=== PATIENT | male | born 1960 | race Caucasian/White ===

== ENCOUNTER → 2019-01-11 12:29 | Outpatient (CLI) | payer OTHER, SELFPAY ==
[2019-01-11 15:20] LABS: ALB/GLOB Ratio 1.1 RATIO (0.9-2.4); AST(SGOT) 16 U/L (15-37); Alanine Aminotransfer ALT/SGPT 27 U/L (16-61); Alkaline Phosphatase 85 U/L (45-117); Anion Gap 7 (5-15); BUN 16 mg/dL (7-18); BUN/Creat Ratio 18.4 RATIO (10-20); Calcium,Total 9.1 mg/dL (8.5-10.1); Chloride 107 mmol/L (98-107); Cholesterol 226 mg/dL (200); Creatinine, Serum 0.87 mg/dL (0.70-1.30); EST Glomerular Filtration Rate 96 mL/min (>60); Est Glom Filt Rate - Afr Amer 117 mL/min (>60); Globulin 3.7 g/dL (2.2-4.2); Glucose 80 mg/dL (74-106); High Density Lipoprotein 61 mg/dL; Potassium 3.7 mmol/L (3.5-5.1); Protein, Total 7.7 g/dL (6.4-8.2); Sodium Level 138 mmol/L (136-145); Triglycerides 84 mg/dL; Very Low Density Lipoprotein 17 mg/dL (5-40)
== END ==
PROVIDERS: Family Provider Family Medicine; PCP Family Medicine; Referring Provider Family Medicine; Visit Provider Family Medicine
DX: I10 Essential (primary) hypertension (principal)
CPT/HCPCS: 36415; 80053; 80061

== ENCOUNTER → 2019-04-21 17:17 | Outpatient (CLI) | payer OTHER, SELFPAY ==
--- NOTE | 2019-04-21 18:28 | CT_ITS ---
STUDY: CT ORBITS WITH CONTRAST REASON FOR EXAM: Male, 58 years old. RIGHT EYE PROPTOSIS RADIATION DOSAGE (If Supplied By Facility): CTDIvol = ( 27.19 ) mGy, DLP = ( 2470.20 ) mGycm TECHNIQUE: The patient was scanned in a multi detector CT scanner. Transaxial imaging was performed following the intravenous administration of Isovue 370 100ml. Sagittal and coronal images were reconstructed. Individualized dose optimization techniques were used for this CT. COMPARISON: Head CT same day FINDINGS: Normal globes. Normal intraconal spaces. Normal optic nerve sheath complex. Normal bilateral extraocular muscles. Normal lacrimal glands. Normal bilateral medial and inferior orbital malagon. Normal bilateral maxillary bones. Normal bilateral frontozygomatic arches. Normal bilateral zygomatic temporal arches. Normal frontal sinus. Normal ethmoidal sinuses. 14 mm cyst in the right maxillary sinus. Normal sphenoid sinuses. Normal soft tissue structures. There is no demonstrated abnormal enhancement. CT/Orb Sella Post Fossa Ear W/CON IMPRESSION: Normal enhanced CT examination of the bilateral orbits. Electronically Signed: Guillaume Kaur MD at 22:15 EST Tel , Service support ,
--- NOTE | 2019-04-21 18:28 | CT_ITS ---
STUDY: CT BRAIN WITH AND WITHOUT CONTRAST REASON FOR EXAM: Male, 58 years old. Right eye proptosis. RADIATION DOSAGE (If Supplied By Facility): CTDIvol = ( 27.19 ) mGy, DLP = ( 3470.20 ) mGycm TECHNIQUE: Transaxial CT imaging of the brain was performed pre and post contrast administration. The examination was performed with intravenous administration of Isovue 370 100ml. Individualized dose optimization techniques were used for this CT. COMPARISON: None. FINDINGS: Normal soft tissue structures. Normal calvarium. Right globe is minimally proptotic. No orbital mass identified. Extraocular musculature are symmetric. No osseous or vascular lesions. Mildly prominent anterior frontal CSF spaces otherwise normal ventricles, cisterna and sulci.. Normal white matter tracts of the cerebral hemispheres. Normal basal ganglia and thalami. Normal brainstem. Normal cerebellum. Niles cisterna magna versus arachnoid cyst in the posterior fossa, both usually incidental findings. There is no intracranial hemorrhage. There are no findings of an acute ischemic infarction. 0.9 cm right maxillary sinus mucous retention cyst. Minimal bilateral maxillary sinus mucosal thickening. Mastoid air cells well-aerated. CT/Brain/Head W/WO Contrast IMPRESSION: No acute intracranial abnormality. Minimal right sided proptosis without an obvious etiology. No intraorbital mass Electronically Signed: Michael Kennedy MD at 7:09 EST , Service support ,
== END ==
PROVIDERS: PCP Family Medicine; Referring Provider Ophthalmology; Visit Provider Ophthalmology
DX: H05.20 Unspecified exophthalmos (principal)
CPT/HCPCS: 70470; 70481; Q9967

== ENCOUNTER → 2019-05-13 11:37 | Outpatient (CLI) | payer OTHER, SELFPAY ==
[2019-05-13 16:12] LABS: ALB/GLOB Ratio 1.1 RATIO (0.9-2.4); AST(SGOT) 23 U/L (15-37); Alanine Aminotransfer ALT/SGPT 38 U/L (16-61); Alkaline Phosphatase 91 U/L (45-117); Anion Gap 8 (5-15); BUN 17 mg/dL (7-18); BUN/Creat Ratio 18.7 RATIO (10-20); Calcium,Total 9.4 mg/dL (8.5-10.1); Chloride 105 mmol/L (98-107); Cholesterol 125 mg/dL (200); Creatinine, Serum 0.91 mg/dL (0.70-1.30); EST Glomerular Filtration Rate 92 mL/min (>60); Est Glom Filt Rate - Afr Amer 111 mL/min (>60); Globulin 3.6 g/dL (2.2-4.2); Glucose 106 mg/dL (74-106); High Density Lipoprotein 54 mg/dL; Potassium 3.3 mmol/L (3.5-5.1); Protein, Total 7.6 g/dL (6.4-8.2); Sodium Level 139 mmol/L (136-145); Triglycerides 39 mg/dL; Very Low Density Lipoprotein 8 mg/dL (5-40)
== END ==
PROVIDERS: PCP Family Medicine; Referring Provider Family Medicine; Visit Provider Family Medicine
DX: I10 Essential (primary) hypertension (principal); E78.5 Hyperlipidemia, unspecified
CPT/HCPCS: 36415; 80053; 80061

== ENCOUNTER → 2019-11-16 11:54 | Outpatient (CLI) | payer OTHER, SELFPAY ==
[2019-11-16 16:06] LABS: Anion Gap 8 (5-15); BUN 19 mg/dL (7-18); BUN/Creat Ratio 20.7 RATIO (10-20); Calcium,Total 9.3 mg/dL (8.5-10.1); Chloride 104 mmol/L (98-107); Cholesterol 132 mg/dL (200); Creatinine, Serum 0.92 mg/dL (0.70-1.30); EST Glomerular Filtration Rate 91 mL/min (>60); Est Glom Filt Rate - Afr Amer 110 mL/min (>60); Glucose 99 mg/dL (74-106); High Density Lipoprotein 58 mg/dL; PSA,Total - Annual Screen 1.16 ng/mL (0.00-4.00); Potassium 3.4 mmol/L (3.5-5.1); Sodium Level 139 mmol/L (136-145); Triglycerides 52 mg/dL; Very Low Density Lipoprotein 10 mg/dL (5-40)
== END ==
PROVIDERS: PCP Family Medicine; Referring Provider Family Medicine; Visit Provider Family Medicine
DX: I10 Essential (primary) hypertension (principal); Z12.5 Encounter for screening for malignant neoplasm of prostate
CPT/HCPCS: 36415; 80048; 80061; 84153; G0103

== ENCOUNTER → 2020-10-09 07:22 | Outpatient (CLI) | payer OTHER, SELFPAY ==
--- NOTE | 2020-10-09 07:30 | ECHOD_ITS ---
Reason For Study: MURMUR Procedure This was a 2D Doppler, Color Flow transthoracic echocardiogram. Exam performed in department. Left Ventricle Normal LV size. The estimated ejection fraction is 70 %. Normal diastology for age. No regional wall motion abnormalities noted. Right Ventricle Normal RV size. Normal systolic function. Atria Normal left atrium. Normal right atrium. No doppler evidence for ASD. Mitral Valve There is no mitral valve stenosis. No mitral valve insufficiency. Tricuspid Valve There is no tricuspid stenosis. Trivial tricuspid valve insufficiency. Aortic Valve Bicuspid aortic valve. There is no aortic stenosis. Mild (1+) aortic valve insufficiency. Pulmonic Valve There is no pulmonic valvular stenosis. Mild (1+) pulmonic valve insufficiency. Great Vessels Mild to moderately dilated aortic root. Pericardium/Pleural No pericardial effusion. MMode/2D Measurements & Calculations LVIDd: 5.1 cm IVSd: 0.79 cm Ao root diam: 4.5 cm LVIDs: 3.2 cm LVPWd: 0.84 cm RVDd: 4.2 cm FS: 37.3 % LAV(MOD-bp): 76.8 ml LA A4 area: 23.6 cm2 LA dimension(2D): 3.3 cm LAV(MOD-bp) Indexed: 35.7 ml/m2 LAV(MOD-sp2): 77.9 ml LAV(MOD-sp4): 72.3 ml RA A4 area: 17.6 cm2 Time Measurements MV dec time: 0.24 sec Doppler Measurements & Calculations MV E max rodrigo: 79.7 cm/sec Lat Peak E' Rodrigo: 10.9 cm/sec Med Peak E' Rodrigo: 8.9 cm/sec MV A max rodrigo: 48.6 cm/sec E/E' lat: 7.3 E/E' med: 8.9 MV E/A: 1.6 Ao V2 max: 179.5 cm/sec AI max rodrigo: 446.7 cm/sec LV V1 max: 103.4 cm/sec Ao max P.9 mmHg AI max P.8 mmHg LV V1 max P.3 mmHg Ao V2 mean: 119.6 cm/sec AI dec slope: 179.5 cm/sec2 LV V1 mean P.5 mmHg Ao mean P.5 mmHg AI P1/2t: 729.0 msec LV V1 mean: 75.6 cm/sec Ao V2 VTI: 38.3 cm LV V1 VTI: 23.3 cm PA V2 max: 98.0 cm/sec PI end-d rodrigo: 79.2 cm/sec TR max rodrigo: 295.7 cm/sec TR max P.0 mmHg ECHO/Echo Complete Interpretation Summary The estimated ejection fraction is 70 %. Normal diastology for age. Bicuspid aortic valve. Mild (1+) aortic valve insufficiency. Mild to moderately dilated aortic root. Ordering Physician: Bean Brown Referring Physician: Bean Brown Performed By: Flora Peace, ADITHYA, RVT
[2020-10-09 12:10] LABS: Absolute Lymphocyte Count 1.31 X10^3/uL (0.83-4.51); Absolute Neutrophil Count 3.8 X10^3/uL (2.0-7.7); Basophil# 0.04 X10^3/uL; Basophil% 0.7 % (0-1); Eosinophil# 0.12 X10^3/uL; Eosinophils% 2.1 % (0-5); Hematocrit 40.1 % (40-54); Hemoglobin 13.2 g/dL (13.0-16.5); Lymphocyte # 1.31 X10^3/ul (0.83-4.51); Lymphocyte % 22.9 % (19-41); Mean Corp Hgb Conc 32.9 g/dL (32-36); Mean Corpuscular Hgb 29.7 pg (27.0-32.0); Mean Corpuscular Volume 90.3 fL (80-94); Mean Platelet Vol. 10.9 fl (6.2-12.0); Monocyte# 0.46 X10^3/uL; NRBC Flagged by Analyzer 0 % (0-5); Neutrophil # 3.78 X10^3/uL (2.7-7.7); Platelet Count 221 K/mm3 (150-450); RBC Distribution Width CV 13.1 % (11.6-14.6); RBC Distribution Width SD 43.8 fl (35.1-43.9); Red Blood Count 4.44 M/mm3 (4.6-6.2); White Blood Count 5.7 K/mm3 (4.4-11.0)
[2020-10-09 12:23] LABS: Vitamin B12 760 pg/mL (211-911)
== END ==
PROVIDERS: PCP Family Medicine; Referring Provider Family Medicine; Visit Provider Family Medicine
DX: R01.1 Cardiac murmur, unspecified (principal); R53.83 Other fatigue
CPT/HCPCS: 36415; 82607; 84443; 85025; 93306

== ENCOUNTER 2021-06-01 14:09 | Outpatient (CLI) | payer OTHER, SELFPAY ==
[2021-06-01 16:24] LABS: Amphetamine Urine VISTA NEGATIVE (<1000 ng/mL); Barbiturate Urine VISTA NEGATIVE (< 200 ng/mL); Benzodiazepine Urine VISTA NEGATIVE (< 200 ng/mL); Cocaine Urine VISTA NEGATIVE (< 300 ng/mL); Ecstacy Urine VISTA NEGATIVE (< 500 ng/mL); Methadone Urine VISTA NEGATIVE (< 300 ng/mL); PCP Urine VISTA NEGATIVE (< 25 ng/mL); THC Urine VISTA NEGATIVE (< 50 ng/mL); Vista UDS pH Range 7
== END 2021-06-01 23:59 | disposition home or self-care (01) ==
LOC: LAB 14:11
PROVIDERS: PCP Registered Nurse; Referring Provider Internal Medicine Pulmonary Disease; Visit Provider Internal Medicine Pulmonary Disease
DX: G47.10 Hypersomnia, unspecified (principal)
CPT/HCPCS: 80307

== ENCOUNTER → 2021-09-25 | Outpatient (CLI) | payer OTHER, SELFPAY ==
[2021-09-25 15:04] LABS: Absolute Lymphocyte Count 1.35 X10^3/uL (0.83-4.51); Absolute Neutrophil Count 3.6 X10^3/uL (2.0-7.7); Basophil# 0.04 X10^3/uL; Basophil% 0.7 % (0-1); Eosinophil# 0.08 X10^3/uL; Eosinophils% 1.4 % (0-5); Hematocrit 41.1 % (40-54); Hemoglobin 13.3 g/dL (13.0-16.5); Lymphocyte # 1.35 X10^3/ul (0.83-4.51); Lymphocyte % 24.1 % (19-41); Mean Corp Hgb Conc 32.4 g/dL (32-36); Mean Corpuscular Hgb 28.9 pg (27.0-32.0); Mean Corpuscular Volume 89.3 fL (80-94); Mean Platelet Vol. 11.7 fl (6.2-12.0); Monocyte# 0.52 X10^3/uL; Monocyte% 9.3 % (0-10); NRBC Flagged by Analyzer 0 % (0-5); Neutrophil % 64.1 % (47-70); Platelet Count 217 K/mm3 (150-450); RBC Distribution Width CV 13.7 % (11.6-14.6); RBC Distribution Width SD 44.6 fl (35.1-43.9); White Blood Count 5.6 K/mm3 (4.4-11.0)
[2021-09-25 15:36] LABS: ALB/GLOB Ratio 1.2 RATIO (0.9-2.4); AST(SGOT) 36 U/L (15-37); Alanine Aminotransfer ALT/SGPT 58 U/L (16-61); Albumin, Serum 3.8 g/dL (3.2-5.0); Alkaline Phosphatase 101 U/L (45-117); Anion Gap 8 (5-15); BUN 18 mg/dL (7-18); BUN/Creat Ratio 22.6 RATIO (10-20); Calcium,Total 9.1 mg/dL (8.5-10.1); Chloride 104 mmol/L (98-107); Cholesterol 155 mg/dL (200); EST Glomerular Filtration Rate 106 mL/min (>60); Est Glom Filt Rate - Afr Amer 128 mL/min (>60); Globulin 3.3 g/dL (2.2-4.2); Glucose 85 mg/dL (74-106); High Density Lipoprotein 61 mg/dL; Potassium 3.7 mmol/L (3.5-5.1); Protein, Total 7.1 g/dL (6.4-8.2); Sodium Level 139 mmol/L (136-145); Triglycerides 48 mg/dL; Very Low Density Lipoprotein 10 mg/dL (5-40)
== END | disposition home or self-care (01) ==
LOC: MFPLAB 11:48
PROVIDERS: PCP Nurse Practitioner Family; Referring Provider Nurse Practitioner Family; Visit Provider Nurse Practitioner Family
DX: I10 Essential (primary) hypertension (principal); E78.5 Hyperlipidemia, unspecified
CPT/HCPCS: 36415; 80053; 80061; 85025

== ENCOUNTER → 2022-06-04 | Outpatient (CLI) | payer OTHER, SELFPAY ==
[2022-06-04 17:53] LABS: Absolute Lymphocyte Count 1.27 X10^3/uL (0.83-4.51); Absolute Neutrophil Count 3.5 X10^3/uL (2.0-7.7); Basophil# 0.04 X10^3/uL; Basophil% 0.7 % (0-1); Eosinophil# 0.09 X10^3/uL; Eosinophils% 1.7 % (0-5); Hematocrit 41.1 % (40-54); Hemoglobin 13.1 g/dL (13.0-16.5); Lymphocyte # 1.27 X10^3/ul (0.83-4.51); Lymphocyte % 23.3 % (19-41); Mean Corp Hgb Conc 31.9 g/dL (32-36); Mean Corpuscular Hgb 28.5 pg (27.0-32.0); Mean Corpuscular Volume 89.3 fL (80-94); Mean Platelet Vol. 11.3 fl (6.2-12.0); Monocyte# 0.52 X10^3/uL; Monocyte% 9.5 % (0-10); NRBC Flagged by Analyzer 0 % (0-5); Neutrophil # 3.51 X10^3/uL (2.7-7.7); Neutrophil % 64.4 % (47-70); Platelet Count 235 K/mm3 (150-450); RBC Distribution Width CV 13.4 % (11.6-14.6); RBC Distribution Width SD 44.1 fl (35.1-43.9); White Blood Count 5.5 K/mm3 (4.4-11.0)
[2022-06-04 18:41] LABS: ALB/GLOB Ratio 1.1 RATIO (0.9-2.4); AST(SGOT) 24 U/L (15-37); Alanine Aminotransfer ALT/SGPT 32 U/L (16-61); Albumin, Serum 3.8 g/dL (3.2-5.0); Alkaline Phosphatase 103 U/L (45-117); Anion Gap 7 (5-15); BUN 16 mg/dL (7-18); Calcium,Total 9.3 mg/dL (8.5-10.1); Chloride 104 mmol/L (98-107); Cholesterol 211 mg/dL (200); Creatinine, Serum 0.76 mg/dL (0.70-1.30); EST Glomerular Filtration Rate 111 mL/min (>60); Est Glom Filt Rate - Afr Amer 134 mL/min (>60); Globulin 3.5 g/dL (2.2-4.2); Glucose 85 mg/dL (74-106); High Density Lipoprotein 62 mg/dL; Potassium 3.3 mmol/L (3.5-5.1); Protein, Total 7.3 g/dL (6.4-8.2); Sodium Level 137 mmol/L (136-145); Triglycerides 75 mg/dL; Very Low Density Lipoprotein 15 mg/dL (5-40)
== END | disposition home or self-care (01) ==
PROVIDERS: PCP Family Medicine; Visit Provider Nurse Practitioner Family
DX: E78.5 Hyperlipidemia, unspecified (principal); I10 Essential (primary) hypertension
CPT/HCPCS: 36415; 80053; 80061; 85025

== ENCOUNTER → 2022-12-16 | Outpatient (CLI) | payer OTHER, SELFPAY ==
[2022-12-16 15:25] LABS: Absolute Lymphocyte Count 1.47 X10^3/uL (0.83-4.51); Absolute Neutrophil Count 4.4 X10^3/uL (2.0-7.7); Basophil# 0.06 X10^3/uL; Basophil% 0.9 % (0-1); Eosinophil# 0.14 X10^3/uL; Eosinophils% 2.1 % (0-5); Hematocrit 42.9 % (40-54); Hemoglobin 13.9 g/dL (13.0-16.5); Lymphocyte # 1.47 X10^3/ul (0.83-4.51); Lymphocyte % 21.8 % (19-41); Mean Corp Hgb Conc 32.4 g/dL (32-36); Mean Corpuscular Hgb 29.3 pg (27.0-32.0); Mean Corpuscular Volume 90.5 fL (80-94); Mean Platelet Vol. 11.8 fl (6.2-12.0); Monocyte# 0.67 X10^3/uL; Monocyte% 9.9 % (0-10); NRBC Flagged by Analyzer 0 % (0-5); Neutrophil % 65.2 % (47-70); Platelet Count 205 K/mm3 (150-450); RBC Distribution Width CV 13.5 % (11.6-14.6); Red Blood Count 4.74 M/mm3 (4.6-6.2); White Blood Count 6.8 K/mm3 (4.4-11.0)
[2022-12-16 15:39] LABS: Hemoglobin A1c 6.1 % (3.8-5.6)
[2022-12-16 15:40] LABS: Microalbumin:Creatinine Ratio 16.5 mg/g CRE (<30 mg/g CRE)
[2022-12-16 16:05] LABS: AST(SGOT) 41 U/L (15-37); Alanine Aminotransfer ALT/SGPT 76 U/L (16-61); Albumin, Serum 3.8 g/dL (3.2-5.0); Alkaline Phosphatase 97 U/L (45-117); Anion Gap 8 (5-15); BUN 22 mg/dL (7-18); BUN/Creat Ratio 25.6 RATIO (10-20); Calcium,Total 9.3 mg/dL (8.5-10.1); Chloride 104 mmol/L (98-107); Cholesterol 144 mg/dL (200); Creatinine, Serum 0.86 mg/dL (0.70-1.30); EST Glomerular Filtration Rate 97 mL/min (>60); Est Glom Filt Rate - Afr Amer 117 mL/min (>60); Globulin 3.8 g/dL (2.2-4.2); Glucose 84 mg/dL (74-106); High Density Lipoprotein 66 mg/dL; PSA,Total - Annual Screen 1.47 ng/mL (0.00-4.00); Potassium 3.4 mmol/L (3.5-5.1); Protein, Total 7.6 g/dL (6.4-8.2); Sodium Level 139 mmol/L (136-145); Thyroid Stim Hormone (TSH) 0.84 uIU/mL (0.358-3.74); Triglycerides 42 mg/dL; Very Low Density Lipoprotein 8 mg/dL (5-40)
== END | disposition home or self-care (01) ==
PROVIDERS: PCP Family Medicine; Referring Provider Family Medicine; Visit Provider Family Medicine
DX: Z12.5 Encounter for screening for malignant neoplasm of prostate (principal); E78.5 Hyperlipidemia, unspecified; I10 Essential (primary) hypertension
CPT/HCPCS: 36415; 80053; 80061; 82043; 82570; 83036; 84153; 84443; 85025; G0103

== ENCOUNTER → 2023-01-02 | Outpatient (CLI) | payer OTHER, SELFPAY ==
[2023-01-02 14:54] LABS: AST(SGOT) 43 U/L (15-37); Alanine Aminotransfer ALT/SGPT 77 U/L (16-61); Alkaline Phosphatase 106 U/L (45-117); Anion Gap 2 (5-15); BUN 16 mg/dL (7-18); BUN/Creat Ratio 14.8 RATIO (10-20); Calcium,Total 9.2 mg/dL (8.5-10.1); Chloride 104 mmol/L (98-107); Creatinine, Serum 1.08 mg/dL (0.70-1.30); EST Glomerular Filtration Rate 74 mL/min (>60); Est Glom Filt Rate - Afr Amer 90 mL/min (>60); Glucose 91 mg/dL (74-106); Magnesium 2.5 mg/dL (1.6-2.6); Potassium 3.4 mmol/L (3.5-5.1); Sodium Level 138 mmol/L (136-145); Thyroid Stim Hormone (TSH) 1.16 uIU/mL (0.358-3.74)
== END | disposition home or self-care (01) ==
PROVIDERS: PCP Family Medicine; Referring Provider Internal Medicine Cardiovascular Disease; Visit Provider Internal Medicine Cardiovascular Disease
DX: I47.10 Supraventricular tachycardia, unspecified (principal); I77.810 Thoracic aortic ectasia; I10 Essential (primary) hypertension; Q23.1 Congenital insufficiency of aortic valve
CPT/HCPCS: 36415; 80053; 83735; 84443

== ENCOUNTER → 2023-01-14 | Outpatient (CLI) | payer OTHER, SELFPAY ==
--- NOTE | 2023-01-14 18:09 | CT_ITS ---
STUDY: CTA CHEST REASON FOR EXAM: Male, 62 years old. dilated aortic root RADIATION DOSAGE (If Supplied By Facility): CTDIvol = ( 13.78 ) mGy, DLP = ( 517.77 ) mGycm TECHNIQUE: The examination was performed with the intravenous administration of IV 100mL Isovue-370. Post-processing of the angiographic images was performed, with multiplanar reformation and 3D reconstruction. Individualized dose optimization techniques were used for this CT. COMPARISON: None. FINDINGS: Normal enhancement of the main pulmonary artery and right and left pulmonary arteries. Normal enhancement of the bilateral peripheral pulmonary arteries. There is no demonstrated pulmonary embolism. Normal thoracic aorta and visualized great vessels, proximal aorta measuring 3.6 cm and descending thoracic aorta averaging approximately 2.3 cm. There is no demonstrated aortic dissection. Normal heart and pericardium. Normal mediastinum. Normal hilar regions. Normal visualized trachea and bronchi. The lungs are well expanded. Left lower lobe groundglass opacity compatible with pneumonitis. Mild bilateral lower lobe atelectasis, remainder of the lung parenchyma is normal. Normal pleura. Normal chest wall structures. There are degenerative changes of thoracic spine. Normal visualized upper abdomen. CT/CTA Chest W/WO Contrast IMPRESSION: Negative CTA chest examination, without a demonstrated pulmonary embolism or arterial dissection. Possible left lower lobe pneumonitis. Bilateral lower lobe atelectasis. No pleural effusion or pneumothorax. Electronically Signed: Melissa Morales MD at 1:17 EST ,
== END | disposition home or self-care (01) ==
PROVIDERS: PCP Family Medicine; Referring Provider Internal Medicine Cardiovascular Disease; Visit Provider Internal Medicine Cardiovascular Disease
DX: I77.810 Thoracic aortic ectasia (principal); Q23.1 Congenital insufficiency of aortic valve; I47.10 Supraventricular tachycardia, unspecified; E78.5 Hyperlipidemia, unspecified; I10 Essential (primary) hypertension
CPT/HCPCS: 71275; Q9967

== ENCOUNTER → 2023-01-31 | Outpatient (CLI) | payer OTHER, SELFPAY ==
--- NOTE | 2023-01-31 10:37 | ECHOCS_ITS ---
Reason For Study: HTN Procedure This was a 2D Doppler, Color Flow transthoracic echocardiogram. The study was technically difficult. Contrast injection was performed. Exam performed in department. Left Ventricle Normal size and thickness. The left ventricular ejection fraction is 65 %. Stage 1 diastolic dysfunction. Right Ventricle Normal right ventricle. Atria The left atrium is moderately enlarged. Normal right atrium. Mitral Valve Trivial mitral valve insufficiency. Tricuspid Valve Trivial tricuspid valve insufficiency. Unable to estimate RV systolic pressure due to insufficient tricuspid regurgitant envelope. Aortic Valve Bicuspid aortic valve. There is no aortic stenosis. Mild (1+) aortic valve insufficiency. Pulmonic Valve The pulmonic valve is not well visualized. Great Vessels Mild to moderately dilated aortic root. Pericardium/Pleural No pericardial effusion. Medication 22 gauge I.V. with prn adaptor inserted into right arm. Diluted definity 2ml given slow IV push to enhance endocardial definition. MMode/2D Measurements & Calculations LVIDd: 4.5 cm IVSd: 1.0 cm LVOT diam: 2.0 cm LVIDs: 3.3 cm LVPWd: 0.96 cm RVDd: 4.0 cm FS: 27.1 % LVOT area: 3.1 cm2 Ao root diam: 4.4 cm LAV(MOD-bp): 76.4 ml LVAd ap4: 39.6 cm2 LA dimension: 4.5 cm LAV(MOD-bp) Indexed: 35.2 ml/m2 LVLd ap4: 9.2 cm LAV(MOD-sp2): 65.8 ml EDV(MOD-sp4): 136.8 ml LAV(MOD-sp4): 72.1 ml EDV(sp4-el): 144.3 ml LVAs ap4: 20.4 cm2 LVLs ap4: 7.2 cm ESV(MOD-sp4): 47.7 ml ESV(sp4-el): 49.3 ml EF(MOD-sp4): 65.1 % EF(sp4-el): 65.8 % SV(MOD-sp4): 89.1 ml SV(sp4-el): 95.0 ml Aortic Valve Planimetry: 2.6 cm2 LA A4 area: 24.3 cm2 RA A4 area: 18.1 cm2 TAPSE: 2.1 cm Time Measurements MV dec time: 0.24 sec Doppler Measurements & Calculations MV E max rodrigo: 59.9 cm/sec Lat Peak E' Rodrigo: 8.4 cm/sec Med Peak E' Rodrigo: 9.2 cm/sec MV A max rodrigo: 85.1 cm/sec E/E' lat: 7.1 E/E' med: 6.5 MV E/A: 0.70 MV V2 max: 96.3 cm/sec MV P1/2t max rodrigo: 72.1 cm/sec Ao V2 max: 148.2 cm/sec MV max P.7 mmHg MV P1/2t: 80.4 msec Ao max P.8 mmHg MV V2 mean: 40.5 cm/sec MV dec slope: 262.7 cm/sec2 Ao V2 mean: 90.2 cm/sec MV mean P.87 mmHg MVA(P1/2t): 2.7 cm2 Ao mean P.9 mmHg MV V2 VTI: 28.5 cm Ao V2 VTI: 28.6 cm MVA(VTI): 2.0 cm2 AV (velocity ratio): 0.66 PEDRITO(I,D): 2.0 cm2 PEDRITO(V,D): 2.0 cm2 LV V1 max: 97.7 cm/sec SV(LVOT): 58.2 ml PA V2 max: 87.2 cm/sec LV V1 max P.8 mmHg LV V1 mean P.8 mmHg LV V1 mean: 61.8 cm/sec LV V1 VTI: 18.7 cm ECHO/Echo Complete W/ Contrast Interpretation Summary The left ventricular ejection fraction is 65 %. Stage 1 diastolic dysfunction. The left atrium is moderately enlarged. Bicuspid aortic valve. Mild (1+) aortic valve insufficiency. Mild to moderately dilated aortic root. Ordering Physician: Tracy Morrow Referring Physician: Samantha Nicole Performed By: Blair Hunt RCS
--- NOTE | 2023-02-03 13:55 | STRESSREP ---
Stress Test Report Date: 01/31/2023 Procedure: Exercise tolerance test Indications: SVT Consent: Per the patient Procedure: The patient exercised on a [place] protocol for 3 minutes and 29 seconds achieving a peak heart rate of 176 bpm (110% predicted maximal heart rate) with a peak blood pressure 160/72 mmHg and a peak MET capacity of approximately 5.7 MET's. The baseline ECG demonstrated sinus rhythm with PACs. The peak exercise ECG demonstrated no ischemic changes. Atrial runs noted during recovery. The functional capacity was considered below average. The patient had no complaints of chest discomfort during exercise or recovery. The examination was discontinued secondary to arrhythmia. Impression: 1. Technically adequate (percent predicted maximal heart rate greater than 85%) exercise tolerance test 2. Peak exercise ECG with no ischemic changes 3. Frequent PACs noted during exercise. Atrial runs noted during recovery. This note was generated with Queue-itation software. It may contain incorrect words, spelling, and punctuation that were not noted in checking the note before signing.
== END | disposition home or self-care (01) ==
PROVIDERS: PCP Family Medicine; Referring Provider Internal Medicine Cardiovascular Disease; Visit Provider Internal Medicine Cardiovascular Disease
DX: I10 Essential (primary) hypertension (principal); I77.810 Thoracic aortic ectasia; I47.10 Supraventricular tachycardia, unspecified; Q23.1 Congenital insufficiency of aortic valve
CPT/HCPCS: 93017; 93306; Q9957; A4216; C8929

== ENCOUNTER → 2023-12-15 | Outpatient (CLI) | payer OTHER, SELFPAY ==
[2023-12-15 12:34] LABS: Absolute Lymphocyte Count 1.38 X10^3/uL (0.83-4.51); Absolute Neutrophil Count 4.6 X10^3/uL (2.0-7.7); Basophil# 0.07 X10^3/uL; Eosinophil# 0.15 X10^3/uL; Eosinophils% 2.2 % (0-5); Hematocrit 42.1 % (40-54); Hemoglobin 13.2 g/dL (13.0-16.5); Lymphocyte # 1.38 X10^3/ul (0.83-4.51); Lymphocyte % 20.2 % (19-41); Mean Corp Hgb Conc 31.4 g/dL (32-36); Mean Corpuscular Hgb 26.5 pg (27.0-32.0); Mean Corpuscular Volume 84.4 fL (80-94); Mean Platelet Vol. 11.5 fl (6.2-12.0); Monocyte# 0.57 X10^3/uL; Monocyte% 8.3 % (0-10); NRBC Flagged by Analyzer 0 % (0-5); Neutrophil # 4.64 X10^3/uL (2.7-7.7); Platelet Count 220 K/mm3 (150-450); RBC Distribution Width SD 45.9 fl (35.1-43.9); Red Blood Count 4.99 M/mm3 (4.6-6.2); White Blood Count 6.8 K/mm3 (4.4-11.0)
[2023-12-15 13:23] LABS: AST(SGOT) 40 U/L (15-37); Alanine Aminotransfer ALT/SGPT 70 U/L (16-61); Albumin, Serum 3.8 g/dL (3.2-5.0); Alkaline Phosphatase 114 U/L (45-117); Anion Gap 6 (5-15); BUN 20 mg/dL (7-18); BUN/Creat Ratio 23.6 RATIO (10-20); Calcium,Total 9.7 mg/dL (8.5-10.1); Chloride 104 mmol/L (98-107); Cholesterol 142 mg/dL (200); Creatinine, Serum 0.85 mg/dL (0.70-1.30); EST Glomerular Filtration Rate 98 mL/min (>60); Est Glom Filt Rate - Afr Amer 118 mL/min (>60); Glucose 94 mg/dL (74-106); High Density Lipoprotein 66 mg/dL; Potassium 3.5 mmol/L (3.5-5.1); Protein, Total 7.8 g/dL (6.4-8.2); Sodium Level 137 mmol/L (136-145); Triglycerides 56 mg/dL; Very Low Density Lipoprotein 11 mg/dL (5-40)
== END | disposition home or self-care (01) ==
LOC: MFPLAB 11:15
PROVIDERS: Family Medicine; Visit Provider Family Medicine
DX: I10 Essential (primary) hypertension (principal); E78.5 Hyperlipidemia, unspecified; Z12.5 Encounter for screening for malignant neoplasm of prostate
CPT/HCPCS: 36415; 80053; 80061; 85025

== ENCOUNTER → 2024-06-01 | Outpatient (CLI) | payer OTHER, SELFPAY ==
[2024-06-01 12:56] LABS: Anion Gap 12 (5-15); BUN 17 mg/dL (4-19); BUN/Creat Ratio 20.5 RATIO (10-20); Calcium,Total 9.3 mg/dL (7.6-11.0); Chloride 103 mmol/L (98-108); Creatinine, Serum 0.83 mg/dL (0.70-1.20); EST Glomerular Filtration Rate 99 (>60); Glucose 107 mg/dL (70-99); Potassium 3.5 mmol/L (3.3-5.1); Sodium Level 140 mmol/L (133-145)
== END | disposition home or self-care (01) ==
LOC: MTLAB 09:18
PROVIDERS: PCP Family Medicine; Referring Provider Family Medicine; Visit Provider Family Medicine
DX: E87.6 Hypokalemia (principal)
CPT/HCPCS: 36415; 80048

== ENCOUNTER 2024-10-08 05:59 | Day surgery (SDC) | payer OTHER, SELFPAY ==
--- NOTE | 2024-10-05 16:47 | PAT.ANESEVAL ---
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 When Was Last Pacemaker Check QUESTION #4 FULL TEXT: You/Your Family Experience fever (hyperthermia) with Anesthesia Last Oral Intake Last Oral intake: Last Oral Intake NPO since Meds taken in AM with sips of water? Meds patient instructed to take am of surgery PONV PONV - technician support engineer: PONV - technician support engineer Female No 10/05/24 12:08 HX of Motion Sickness Yes 10/05/24 12:08 HX of N/V After Surgery No 10/05/24 12:08 Non-Smoker No 10/05/24 12:08 Duration of Surgery greater No 10/05/24 12:08 than 60 minutes Number of Risk Factors 1 10/05/24 12:08 PONV Score Low Risk 10/05/24 12:08 Height & Weight Height & Weight: Anesthesia: Height & Weight Height 5 ft 10 in 01/02/23 13:05 Respiratory Assessment Respiratory Assessment - technician support engineer: Respiratory Tract Infection Hx - technician support engineer Hx Respiratory Tract Infection No 10/05/24 12:08 STOP Sleep Apnea STOP Sleep Apnea - technician support engineer: STOP Sleep Apnea - technician support engineer Hx Hypertension Yes: CONTROLLED ON MED 10/05/24 12:08 Hx Sleep Apnea Yes 10/05/24 12:08 CPAP Yes 10/05/24 12:08 BIPAP No 10/05/24 12:08 Do you snore loudly (louder than talking or can be heard Do you often feel tired/ fatigued/ sleepy during daytime? Has anyone observed you stop breathing during sleep? STOP Results Positive 10/05/24 12:08 QUESTION #5 FULL TEXT : Do you snore loudly (louder than talking or can be heard through closed doors)? 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 Specify any problems Hx of Preganancy in last 3 N/A 10/05/24 12:08 Months Nurse Filling Out Transfusion VCHRISTIN 10/05/24 12:08 & Questions: Date: 10/05/24 10/05/24 12:08 Time: 12:09 10/05/24 12:08 Patient unable to answer at this time (ie. confused, unrespo /Reproduction History /Reproductive History - technician support engineer: /Reproductive Hx- technician support engineer Hx Now Gestational Age (in weeks): EDC: Hx Hx Para Hx Section SAB PFSH Medical History (Updated 10/05/24 @ 12:08 by Rhea Thibodeaux) Wears glasses Anemia Non-smoker CPAP (continuous positive airway pressure) dependence Sleep apnea History of Holter monitoring History of echocardiogram History of stress test Hypertension Cardiology follow-up encounter History of irregular heartbeat Narcolepsy BMI 34.0-34.9,adult Abnormal heart rhythm DENILSON (obstructive sleep apnea) Hyperlipidemia Essential hypertension Home Medications ?Medication ?Instructions ?Recorded ?Last Taken ?Type atorvastatin 40 mg tablet 40 mg PO QHS 12/27/22 Unknown History caffeine 200 mg tablet 200 mg PO DAILY 12/27/22 Unknown History modafinil 200 mg tablet 200 mg PO DAILY 12/27/22 Unknown History potassium chloride 20 mEq 20 meq PO DAILY #90 tabs 12/18/23 Unknown Rx tablet,extended release amlodipine 5 mg tablet 5 mg PO DAILY 10/05/24 Unknown History losartan 100 1 tab PO DAILY 10/05/24 Unknown History mg-hydrochlorothiazide 25 mg tablet Allergy/AdvReac Type Severity Reaction Status Date / Time lisinopril AdvReac Intermediate Angioedema Verified 10/05/24 11:55 Family History Father Atrial fibrillation Sister Atrial fibrillation Surgical History (Updated 10/05/24 @ 12:08 by Rhea Thibodeaux) Hx of tonsillectomy Social History Smoking Status: Never smoker alcohol intake: never substance use type: does not use caffeine: Yes Audit: Pertinent Findings Pertinent Findings EKG Perinent findings: EKG 1811 2022. Sinus rhythm with PAC Stress test pertinent findings: Stress test 02/03/2023. Peak exercise EKG with no ischemic changes. Technically adequate exercise tolerance test. Frequent PACs noted during exercise. Echo (EF%) pertinent findings: Echo 01/31/2023. EF 65%. Stage I diastolic dysfunction. Bicuspid aortic valve. Mild 1+ aortic valve insufficiency. Recommendation Anesthesia Recommendation Anesthesia recommendation: OPTIMIZED for anesthesia
[2024-10-08] VITALS (8 sets, daily range): BP systolic 105–135; BP diastolic 63–93; PULSE 54–69; RESP 16; TEMP 36.6–37.2; O2SAT 95–100
--- OUTSIDE RECORDS SUMMARY | 2024-10-08 06:02 | XMS RPT_ITS | CCD ---
Author Organization [facility] Care Team Providers Care Banking Teacher Name Role Phone DO Paula Nicole Primary Care Provider DO Paula Nicole Referring Provider [phone] Roverto, Dr. Molina Attending Provider Unavailable Primary Care Provider UnavailDr. Tracy Simon Referring Provider Dr. Tracy Layne Other Provider Tracy Layne MD Unavailable Paula Nicole DO Primary Care Provider Fredy Byers Unavailable TRACY LAYNE Referring Unavailable PAULA NICOLE Primary Care Unavailable FREDY AMOS Attending Unavailable Loretta Camp MD Primary Care Provider Loretta Camp MD Attending Provider Loretta Camp MD Referring Provider [phone] Kenneth Sorto Attending Unavailable Loretta Camp Primary Care Unavailable Loretta Camp Primary Care Unavailable Loretta Camp Referring Unavailable Loretta Camp Attending Unavailable Keny Murray Attending Unavailable Allergies Allergy Classification Reported Allergen(s) Allergy Type Date of Onset Reaction(s) Facility (6 sources) Lisinopril; Translations: [LISINOPRIL] Drug Allergy 01-02-2023 Angioedema [facility] (1 source) Lisinopril Drug Allergy 01-02-2023 [facility] Repository Medications Current Medications Medication Drug Class(es) Dates Sig (Normalized) Sig (Original) atorvastatin 40 mg oral tablet (6 sources) HMG-CoA Reductase Inhibitor Start: 12-27-2022 take 1 tablet by mouth at bedtime Atorvastatin 40 mg tablet Active 40 mg PO AT BEDTIME December 27, 2022 12:00am Comment on above: Take 40 mg by mouth once daily. caffeine 200 mg oral tablet (6 sources) Central Nervous System Stimulant, Methylxanthine Start: 12-27-2022 take 1 tablet by mouth once daily Caffeine 200 mg tablet Active 200 mg PO DAILY December 27, 2022 12:00am Comment on above: Take 200 mg by mouth once daily. Take 200 mg by mouth once daily. He takes one to two tablets daily, due to narcolepsy hydroCHLOROthiazide 12.5 mg / losartan potassium 50 mg oral tablet (6 sources) Thiazide Diuretic, Angiotensin 2 Receptor Selina Start: 12-27-2022 Losartan-Hydroch lorothiazide 50-12.5 mg tablet Active 2 {tbl} PO DAILY December 27, 2022 12:00am Start: 12-27-2022 take 2 tablets by mo [facility] once daily Losartan-Hydrochlorothiazide Active 2 TA BLET PO DAILY December 26, 2022 11:00pm Comment on above: Take 1 tablet by sixto once daily. modafinil 200 mg oral tablet (5 sources) Sympathomimetic-l mayra Agent Start: 12-27-2022 take 1 tablet by mouth once daily Modafinil 200 mg tablet Active 200 mg PO DAILY December 27, 2022 12:00am Comment on above: Take 200 mg by mouth once daily. potassium chloride 20 meq extended release oral tablet (6 sources) Start: 01-02-2023 End: 12-18-2023 take 1 tablet by mouth once daily Potassium Chloride 20 mEq tablet extended release Active 20 meq PO DAILY December 18, 2023 10:09am Comment on above: Take 1 tablet by sixto every afternoon. Completed/Discontinued Medications Medication Drug Class(es) Dates Sig (Normalized) Sig (Original) metoprolol tartrate 25 mg oral tablet (5 sources) beta-Adrenergic Selina Start: 01-02-2023 take 1 tablet by mouth every twelve hours metoprolol tartrate, short acting, (LOPRESSOR) 25 mg tablet Take 1 tablet by mouth every 12 hours. 0 01/02/2023 Active Start: 01-02-2023 take 1 tablet by sixto twice daily Metoprolol Tartrate 25 mg tablet Active 25 mg PO TWICE A DAY 180 January 02, 2023 12:00am Comment on above: Take 1 tablet by sixto th every 12 hours. Problems Active Problems Problem Classification Problem Date Documented Date Episodic/Chronic Aortic; peripheral; and visceral artery aneurysms (7 sources) Aortic root dilatation; Translations: [Thoracic aortic ectasia] 01-02-2023 Chronic Cardiac and circulatory congenital anomalies (10 sources) Bicuspid aortic valve; Translations: [Congenital insufficiency of aortic valve] Onset: 02-14-2023 01-02-2023 Chronic Cardiac dysrhythmias (14 sources) Cardiac arrhythmia; Translations: [Cardiac arrhythmia, unspecified] Onset: 02-14-2023 12-27-2022 Chronic Disorders of lipid metabolism (5 sources) Hyperlipidemia; Translations: [Hyperlipidemia, unspecified] Onset: 01-08-2024 12-27-2022 Chronic Essential hypertension (4 sources) Essential hypertension; Translations: [Essential (primary) hypertension] 12-27-2022 Chronic Other nervous system disorders (5 sources) Narcolepsy; Translations: [Narcolepsy without cataplexy] 01-02-2023 Chronic Other nervous system disorders (4 sources) Narcolepsy without cataplexy; Translations: [Narcolepsy, without cataplexy] Onset: 02-17-2023 01-02-2023 Chronic Other nervous system disorders (1 source) Narcolepsy without cataplexy ; Translations: [Narcolepsy without cataplexy] 02-17-2023 Chronic Other nutritional; endocrine; and metabolic disorders (2 sources) Obese class II; Translations: [Obesity, unspecified] Onset: 02-17-2023 02-17-2023 Chronic Other nutritional; endocrine; and metabolic disorders (1 source) Obesity, unspecified; Translations: [Obesity, Class II, BMI 35-39.9] Onset: 02-17-2023 Chronic Residual codes; unclassified (2 sources) Obstructive sleep apnea syndrome; Translations: [Obstructive sleep apnea (adult) (pediatric)] 02-14-2023 Chronic Residual codes; unclassified (1 source) Obstructive sleep apnea (adult) (pediatric); Translations: [DENILSON (obstructive sleep apnea)] Onset: 02-14-2023 Chronic Past or Other Problems Problem Classification Problem Date Documented Da te Episodic/Chronic Fluid and electrolyte disorders (1 source) Hypokalemia; Translations: [Hypokalemia] Onset: 06-07-2024 Episodic Results Test Name Value Interpretation Reference Range Facility Anion gap in Serum or Plasma Ordered By: Loretta Camp on 06-01-2024 Anion gap [Moles/Vol] 12 mmol/L - [facility] BUN/creatinine ratioOrdered By: Loretta Camp on 06-01-2024 Urea nitrogen/Creatinine [Mass ratio] 20.5 mg/mg High 12-20 [facility] Basic Metabolic Profile (BMP )on 06-01-2024 BUN/CRE 20.5 RATIO High 12-20 [facility] Comment on above: Performed By: #### L 500.2500 #### [facility] [address] [place], [address] Calcium [Mass/Vol] 9.3 mg/dL Normal 7.6-11.0 [facility] Comment on above: Performed By: #### L 500.2500 #### [facility] [address] [place], [address] Chloride [Moles/Vol] 103 mmol/L Normal 98-108 [facility] Comment on above: Performed By: #### L 500.2500 #### [facility] [address] [place], [address] CO2 [Moles/Vol] 25.0 mmol/L Normal 21.0-32.0 [facility] Comment on above: Performed By: #### L 500.2500 #### [facility] [address] [place], [address] Creatinine [Mass/Vol] 0.83 mg/dL Normal 0.70-1.20 [facility] Comment on above: Performed By: #### L 500.2500 #### [facility] [address] [place], [address] GAP 12 Normal - [facility] Comment on above: Performed By: #### L 500.2500 #### [facility] [address] [place], [address] GFR/1.73 sq M.predicted among non-blacks MDRD (S/P/Bld) [Vol rate/Area] 99 mL/min/{1.73_m2} Normal >60 [facility] Comment on above: Result Comment: mL/m in/1.73m2 CKD-EPI Creatinine Equation (2020) Performed By: #### L 500.2500 #### [facility] [address] [place], [address] Glucose [Mass/Vol] 107 mg/dL High 70-99 [facility] Comment on above: Performed By: #### L 500.2500 #### [facility] [address] [place], [address] Potassium [Moles/Vol] 3.5 mmol/L Normal 3.3-5.1 [facility] Comment on above: Performed By: #### L 500.2500 #### [facility] [address] [place], [address] Sodium [Moles/Vol] 140 mmol/L Normal 133-145 [facility] Comment on above: Performed By: #### L 500.2500 #### [facility] [address] [place], [address] Urea nitrogen [Mass/Vol] 17 mg/dL Normal 4-19 [facility] Comment on above: Performed By: #### L 500.2500 #### [facility] [address] [place], [address] Carbon dioxide, total [Moles /volume] in Central venous bloodOrdered By: Loretta Camp on 06-01-2024 CO2 [Moles/Vol] 25.0 mmol/L 21.0-32.0 [facility] Chloride assayOrdered By: Jorge Camp on 06-01-2024 Chloride [Moles/Vol] 103 mmol/L 98-108 [facility] GFR/1.73 sq M.predicted bam g non-blacks MDRD (S/P/Bld) [Vol rate/Area]Ordered By: Loretta Camp on 06-01-2024 Estimated GFR (MDRD) Non-Af Amer 99 >60 [facility] Comment on above: mL/min/1.73m2 CKD-EP I Creatinine Equation (2020) Potassium (Unsp spec) [Mass/ Vol]Ordered By: Loretta Camp on 06-01-2024 Potassium [Moles/Vol] 3.5 mmol/L 3.3-5.1 [facility] Serum creatinine measurement (mass/volume)Ordered By: Loretta Camp on 06-01-2024 Creatinine [Mass/Vol] 0.83 mg/dL 0.70-1.20 [facility] Serum glucose measurement (m ass/volume)Ordered By: Loretta Camp on 06-01-2024 Glucose [Mass/Vol] 107 mg/dL High 70-99 [facility] Serum or plasma calcium avinash urement (mass/volume)Ordered By: Loretta Camp on 06-01-2024 Calcium [Mass/Vol] 9.3 mg/dL 7.6-11.0 [facility] Serum or plasma urea nitroge n measurement (mass/volume)Ordered By: Loretta Camp on 06-01-2024 Urea nitrogen [Mass/Vol] 17 mg/dL 4-19 [facility] Sodium levelOrdered By: Mando Camp on 06-01-2024 Sodium [Moles/Vol] 140 mmol/L 133-145 [facility] CBC W/Diff, Automatedon 12-01 Absolute Lymph 1.38 X10 3/uL Normal 0.83-4.51 [facility] Comment on above: Order Comment: Order Date: 12/02/23 Order Info: [id number] - CBCD Performed By: #### L 500.5980, L500.4050, L100.0100 #### [facility] [place], [address] Absolute Neut 4.6 X10 3/uL Normal 2.0-7.7 [facility] Comment on above: Order Comment: Order Date: 12/02/23 Order Info: [id number] - CBCD Performed By: #### L 500.4100, L500.4050, L100.0100 #### [facility] [address] [place], [address] Basophils/100 WBC (Bld) 1.0 % Normal 0-1 [facility] Comment on above: Order Comment: Order Date: 12/02/23 Order Info: [id number] - CBCD Performed By: #### L 500.4100, L500.4050, L100.0100 #### [facility] [address] [place], [address] Eosinophils/100 WBC (Bld) 2.2 % Normal 0-5 [facility] Comment on above: Order Comment: Order Date: 12/02/23 Order Info: [id number] - CBCD Performed By: #### L 500.4100, L500.4050, L100.0100 #### [facility] [address] [place], [address] Erythrocyte distribution width (RBC) [Ratio] 15.0 % High 11.6-14.6 [facility] Comment on above: Order Comment: Order Date: 12/02/23 Order Info: [id number] - CBCD Performed By: #### L 500.4100, L500.4050, L100.0100 #### [facility] [address] [place], [address] Hematocrit (Bld) [Volume fraction] 42.1 % Normal 40-54 [facility] Comment on above: Order Comment: Order Date: 12/02/23 Order Info: [id number] - CBCD Performed By: #### L 500.4100, L500.4050, L100.0100 #### [facility] [address] [place], [address] Hemoglobin (Bld) [Mass/Vol] 13.2 g/dL Normal 13.0-16.5 [facility] Comment on above: Order Comment: Order Date: 12/02/23 Order Info: [id number] - CBCD Performed By: #### L 500.4100, L500.4050, L100.0100 #### [facility] [address] [place], [address] IG% 0.300 Normal 0.0-0.9 [facility] Comment on above: Order Comment: Order Date: 12/02/23 Order Info: [id number]- - CBCD Result Comment: IG% - Immature Granulocytes (promyelocytes, myelocytes and metamyelocytes) > 1% indicates that a LEFT SHIFT is Present. Performed By: #### L 500.4100, L500.4050, L100.0100 #### [facility] [address] [place], [address] Lymphocytes/100 WBC (Bld) 20.2 % Normal 19-41 [facility] Comment on above: Order Comment: Order Date: 12/02/23 Order Info: 018- - CBCD Performed By: #### L 500.4100, L500.4050, L100.0100 #### [facility] [address] [place], [address] MCH (RBC) [Entitic mass] 26.5 pg Low 27.0-32.0 [facility] Comment on above: Order Comment: Order Date: 12/02/23 Order Info: [id number]- - CBCD Performed By: #### L 500.4100, L500.4050, L100.0100 #### [facility] [address] [place], [address] MCHC (RBC) [Mass/Vol] 31.4 g/dL Low 32-36 [facility] Comment on above: Order Comment: Order Date: 12/02/23 Order Info: [id number]- - CBCD Performed By: #### L 500.4100, L500.4050, L100.0100 #### [facility] [address] [place], [address] MCV (RBC) [Entitic vol] 84.4 fL Normal 80-94 [facility] Comment on above: Order Comment: Order Date: 12/02/23 Order Info: [id number] - CBCD Performed By: #### L 500.4100, L500.4050, L100.0100 #### [facility] [address] [place], [address] Monocytes/100 WBC (Bld) 8.3 % Normal 0-10 [facility] Comment on above: Order Comment: Order Date: 12/02/23 Order Info: [id number] - CBCD Performed By: #### L 500.4100, L500.4050, L100.0100 #### [facility] [address] [place], [address] Neutrophils/100 WBC (Bld) 68.0 % Normal 47-70 [facility] Comment on above: Order Comment: Order Date: 12/02/23 Order Info: [id number]- - CBCD Performed By: #### L 500.4100, L500.4050, L100.0100 #### [facility] [address] [place], [address] Nucleated RBC (Bld) [#/Vol] 0 10*3/uL Normal 0-5 [facility] Comment on above: Order Comment: Order Date: 12/02/23 Order Info: [id number] - CBCD Performed By: #### L 500.4100, L500.4050, L100.0100 #### [facility] [address] [place], [address] Platelet mean volume (Bld) [Entitic vol] 11.5 fL Normal 6.2-12.0 [facility] Comment on above: Order Comment: Order Date: 12/02/23 Order Info: [id number] - CBCD Performed By: #### L 500.4100, L500.4050, L100.0100 #### [facility] [address] [place], [address] Platelets (Bld) [#/Vol] 220 10*3/uL Normal 150-450 [facility] Comment on above: Order Comment: Order Date: 12/02/23 Order Info: [id number] - CBCD Performed By: #### L 500.4100, L500.4050, L100.0100 #### [facility] [address] [place], [address] RBC (Bld) [#/Vol] 4.99 10*6/uL Normal 4.6-6.2 [facility] Comment on above: Order Comment: Order Date: 12/02/23 Order Info: [id number] - CBCD Performed By: #### L 500.4100, L500.4050, L100.0100 #### [facility] [address] [place], [address] RDW SD 45.9 fl High 35.1-43.9 [facility] Comment on above: Order Comment: Order Date: 12/02/23 Order Info: [id number]- - CBCD Performed By: #### L 500.4100, L500.4050, L100.0100 #### [facility] [address] [place], [address] WBC (Bld) [#/Vol] 6.8 10*3/uL Normal 4.4-11.0 [facility] Comment on above: Order Comment: Order Date: 12/02/23 Order Info: [id number] - CBCD Performed By: #### L 500.4100, L500.4050, L100.0100 #### [facility] [address] [place], [address] Comprehensive Metabolic Prof ilon 12-15-2023 Albumin [Mass/Vol] 3.8 g/dL Normal 3.2-5.0 [facility] Comment on above: Order Comment: Order Date: 12/02/23 Order Info: [id number] - CMP Order Info: [id number] - LIPID Performed By: #### L 500.4100, L500.4050, L100.0100 #### [facility] [address] [place], [address] Albumin/Globulin [Mass ratio] 1.0 {ratio} Normal 0.9-2.4 [facility] Comment on above: Order Comment: Order Date: 12/02/23 Order Info: [id number] - CMP Order Info: [id number] - LIPID Performed By: #### L 500.4100, L500.4050, L100.0100 #### [facility] [address] [place], [address] ALK P 114 U/L Normal 45-117 [facility] Comment on above: Order Comment: Order Date: 12/02/23 Order Info: [id number] - CMP Order Info: [id number] - LIPID Performed By: #### L 500.4100, L500.4050, L100.0100 #### [facility] [address] [place], [address] ALT [Catalytic activity/Vol] 70 U/L High 16-61 [facility] Comment on above: Order Comment: Order Date: 12/02/23 Order Info: [id number] - CMP Order Info: [id number] - LIPID Performed By: #### L 500.4100, L500.4050, L100.0100 #### [facility] [address] [place], [address] AST [Catalytic activity/Vol] 40 U/L High 15-37 [facility] Comment on above: Order Comment: Order Date: 12/02/23 Order Info: [id number] - CMP Order Info: [id number] - LIPID Performed By: #### L 500.4100, L500.4050, L100.0100 #### [facility] [address] [place], [address] Bilirubin [Mass/Vol] 0.70 mg/dL Normal 0.20-1.00 [facility] Comment on above: Order Comment: Order Date: 12/02/23 Order Info: [id number] - CMP Order Info: [id number] - LIPID Result Comment: For patients on eltrombopag therapy, use of Dimension [place] TBIL is not recommended. Performed By: #### L 500.4100, L500.4050, L100.0100 #### [facility] [address] [place], [address] BUN/CRE 23.6 RATIO High 10-20 [facility] Comment on above: Order Comment: Order Date: 12/02/23 Order Info: [id number] - CMP Order Info: [id number] - LIPID Performed By: #### L 500.4100, L500.4050, L100.0100 #### [facility] [address] [place], [address] CA,Total 9.7 mg/dL Normal 8.5-10.1 [facility] Comment on above: Order Comment: Order Date: 12/02/23 Order Info: [id number] - CMP Order Info: [id number] - LIPID Performed By: #### L 500.4100, L500.4050, L100.0100 #### [facility] [address] [place], [address] Chloride [Moles/Vol] 104 mmol/L Normal 98-107 [facility] Comment on above: Order Comment: Order Date: 12/02/23 Order Info: [id number] - CMP Order Info: [id number] - LIPID Performed By: #### L 500.4100, L500.4050, L100.0100 #### [facility] [address] [place], [address] CO2 [Moles/Vol] 27.0 mmol/L Normal 21.0-32.0 [facility] Comment on above: Order Comment: Order Date: 12/02/23 Order Info: [id number] - CMP Order Info: [id number] - LIPID Performed By: #### L 500.4100, L500.4050, L100.0100 #### [facility] [address] [place], [address] Creatinine [Mass/Vol] 0.85 mg/dL Normal 0.70-1.30 [facility] Comment on above: Order Comment: Order Date: 12/02/23 Order Info: [id number] - CMP Order Info: [id number] - LIPID Result Comment: The validity of the calculated GFR GFRAA in patients over 70 years has not been determined. Clinical correlation is essential. Performed By: #### L 500.4100, L500.4050, L100.0100 #### [facility] [address] [place], [address] EST GFR - AA 118 mL/min Normal >60 [facility] Comment on above: Order Comment: Order Date: 12/02/23 Order Info: [id number] - CMP Order Info: [id number] - LIPID Result Comment: Afri can [place] GFR Calc Performed By: #### L 500.4100, L500.4050, L100.0100 #### [facility] [address] [place], [address] GAP 6 Normal 5-15 [facility] Comment on above: Order Comment: Order Date: 12/02/23 Order Info: [id number] - CMP Order Info: [id number] - LIPID Performed By: #### L 500.4100, L500.4050, L100.0100 #### [facility] [address] [place], [address] GFR/1.73 sq M.predicted among non-blacks MDRD (S/P/Bld) [Vol rate/Area] 98 mL/min/{1.73_m2} Normal >60 [facility] Comment on above: Order Comment: Order Date: 12/02/23 Order Info: [id number] - CMP Order Info: [id number] - LIPID Result Comment: Non- GFR Calc Performed By: #### L 500.4100, L500.4050, L100.0100 #### [facility] [address] [place], [address] Globulin (S) [Mass/Vol] 4.0 g/dL Normal 2.2-4.2 [facility] Comment on above: Order Comment: Order Date: 12/02/23 Order Info: [id number] - CMP Order Info: [id number] - LIPID Performed By: #### L 500.4100, L500.4050, L100.0100 #### [facility] [address] [place], [address] Glucose [Mass/Vol] 94 mg/dL Normal 74-106 [facility] Comment on above: Order Comment: Order Date: 12/02/23 Order Info: [id number] - CMP Order Info: [id number] - LIPID Performed By: #### L 500.4100, L500.4050, L100.0100 #### [facility] [address] [place], [address] Potassium [Moles/Vol] 3.5 mmol/L Normal 3.5-5.1 [facility] Comment on above: Order Comment: Order Date: 12/02/23 Order Info: [id number]- - CMP Order Info: [id number] - LIPID Performed By: #### L 500.4100, L500.4050, L100.0100 #### [facility] [address] [place], [address] Sodium [Moles/Vol] 137 mmol/L Normal 136-145 [facility] Comment on above: Order Comment: Order Date: 12/02/23 Order Info: [id number] - CMP Order Info: [id number] - LIPID Performed By: #### L 500.4100, L500.4050, L100.0100 #### [facility] [address] [place], [address] T PROT 7.8 g/dL Normal 6.4-8.2 [facility] Comment on above: Order Comment: Order Date: 12/02/23 Order Info: [id number] - CMP Order Info: [id number] - LIPID Performed By: #### L 500.4100, L500.4050, L100.0100 #### [facility] [address] [place], [address] Urea nitrogen [Mass/Vol] 20 mg/dL High 7-18 [facility] Comment on above: Order Comment: Order Date: 12/02/23 Order Info: [id number] - CMP Order Info: [id number] - LIPID Performed By: #### L 500.4100, L500.4050, L100.0100 #### [facility] [address] [place], [address] Lipid Profileon 12-15-2023 Cholesterol [Mass/Vol] 142 mg/dL Normal 200 [facility] Comment on above: Order Comment: Order Date: 12/02/23 Order Info: [id number] - CMP Order Info: [id number] - LIPID Result Comment: <200 mg/dL Desirable 200-240 mg/dL Borderline >240 mg/dL High Risk Performed By: #### L 500.4100, L500.4050, L100.0100 #### [facility] [address] [place], [address] Cholesterol in HDL [Mass/Vol] 66 mg/dL Normal [facility] Comment on above: Order Comment: Order Date: 12/02/23 Order Info: [id number] - CMP Order Info: [id number] - LIPID Result Comment: The drugs N-Acetylcysteine and Metamizole may falsely depress this assay. Reference Range HDL <40 mg/dL Low HDL Cholesterol HDL >or= 60 mg/dL High HDL Cholesterol Performed By: #### L 500.4100, L500.4050, L100.0100 #### [facility] [address] [place], [place], [address] Cholesterol in LDL [Mass/Vol] 65 mg/dL Normal 0-130 [facility] Comment on above: Order Comment: Order Date: 12/02/23 Order Info: [id number] - [facility] Order Info: [id number] - LIPID Performed By: #### L 500.4100, L500.4050, L100.0100 #### [facility] [address] [place], [address] Cholesterol in VLDL [Mass/Vol] 11 mg/dL Normal 5-40 [facility] Comment on above: Order Comment: Order Date: 12/02/23 Order Info: [id number] - [facility] Order Info: [id number] - LIPID Performed By: #### L 500.4100, L500.4050, L100.0100 #### [facility] [address] [place], [address] Triglyceride [Mass/Vol] 56 mg/dL Normal [facility] Comment on above: Order Comment: Order Date: 12/02/23 Order Info: [id number] - [facility] Order Info: [id number] - LIPID Result Comment: The drugs N-Acetylcysteine and Metamizole may falsely depress this assay. Serum Triglycerides Reference Interval Normal <150 mg/dL Borderline high 150 - 199 mg/dL High 200 - 499 mg/dL Very High > or = 500 mg/dL Performed By: #### L 500.4100, L500.4050, L100.0100 #### [facility] [address] [place], [place], [address] CNOVon 02-17-2023 CNOV Office Visit (ELIZABETH PO) -------- SHERRY BOYD ([id number]) 1960 [place] Date Time Provider Department 02/17/23 11:20 AM FREDY AMOS AGCARDPOB During your visit today, we recorded the following information about you: Pulse Blood pressure Weight Height 63/minute 153/89 108.3 kg 1.753 m Fredy Amos MD 02/21/2023 7:25 PM Signed PRIMARY CARE PHYSICIAN: Paula Reyes SHEKHAR [address] [phone] REFERRING PHYSICIAN: Tracy Layne [address] [facility] 3a [facility] [id number] Patient Care Team: Paula Nicole DO as PCP - General (Family Medicine) Tracy Layne MD as Specialty Supervisor [employer] (Cardiology) Fredy Iniguez V as Specialty Supervisor [employer] (Internal Medicine) CHIEF COMPLAINT: Evaluation of arrhythmia HISTORY OF PRESENT ILLNESS: Mr. Boyd is a 62 year old male who presents today for evaluation of arrhythmia. He was at routine PCP office visit. He was noted to have an irregular rhythm. He wore surveillance system monitor for several days. This revealed intermittent tachycardia. He did not experience any symptoms while wearing the monitor. He states that week he wore the monitor was very busy at work, he was doing a lot of strenuous work. Heat always bothers him and these were hot days in the summer. Typically does not experience palpitations. No chest pain or shortness of breath. He has been on metoprolol for the past couple weeks, no side effects --- he was concerned about the potential for side effect of fatigue or sleepiness, due to history of narcolepsy. 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 Can't afford to be tired and such. I have confirmed and edited as necessary, the PFSH and ROS obtained by others. PAST MEDICAL HISTORY Diagnosis Date Abnormal heart rhythm Bicuspid aortic valve BMI 34.0-34.9,adult Dilated aortic root (HCC) Essential hypertension Hyperlipidemia Narcolepsy DENILSON (obstructive sleep apnea) SVT (supraventricular tachycardia) PAST SURGICAL HISTORY Procedure Laterality Date ECHOCARDIOGRAM 10/09/2020 EF 70% HOLTER MONITOR 7 day 12/04/2022-12/11/2022 SOCIAL HISTORY Social History Tobacco Use Smoking status: Never Smokeless tobacco: Never Substance Use Topics Alcohol use: Not Currently Drug use: Never FAMILY HISTORY Problem Relation Age of Onset Arrhythmia Father atrial fibrillation Cancer Father other (pacemaker) Father has a pacemaker or defibrillator since age 50 yrs Arrhythmia Sister possibly atrial fibrillation No Known Problems Sister No Known Problems Brother ALLERGIES: ALLERGIES Allergen Reactions Lisinopril Angioedema Patient does not remember having this MEDICATIONS: metoprolol tartrate, short acting, (LOPRESSOR) 25 mg tablet Take 1 tablet by mouth every 12 hours. modafinil (PROVIGIL) 200 mg tablet Take 200 mg by mouth once daily. potassium chloride 20 mEq TbER Take 1 tablet by mouth every afternoon. atorvastatin (LIPITOR) 40 mg tablet Take 40 mg by mouth once daily. caffeine 200 mg tab Take 200 mg by mouth once daily. He takes one to two tablets daily, due to narcolepsy losartan-hydroCHLOROthia zide (HYZAAR) 50-12.5 mg per tablet Take 1 tablet by mouth once daily. REVIEW OF SYSTEMS: Review of Systems Constitutional: Positive for malaise/fatigue. Negative for chills, fever and weight loss. Respiratory: Negative for cough, hemoptysis, sputum production, shortness of breath and wheezing. Cardiovascular: Negative for chest pain, palpitations, orthopnea, claudication, leg swelling and PND. Gastrointestinal: Negative for abdominal pain, blood in stool, melena, nausea and vomiting. Genitourinary: Negative for dysuria and hematuria. Musculoskeletal: Negative for falls and myalgias. Skin: Negative for rash. Neurological: Negative for dizziness, focal weakness, seizures and loss of consciousness. PHYSICAL EXAMINATION: BP 153/89 Pulse 63 Ht 5' 9 (1.75m) Wt 238 lb 12.8 oz (108.3kg) SpO2 96% BMI 35.25 kg/(m2). Physical Exam Vitals reviewed. Constitutional: General: He is not in acute distress. Appearance: Normal appearance. HENT: Head: Normocephalic and atraumatic. Cardiovascular: Rate and Rhythm: Normal rate and regular rhythm. Frequent Extrasystoles are present. Heart sounds: Normal heart sounds, S1 normal and S2 normal. No murmur heard. No friction rub. Pulmonary: Effort: Pulmonary effort is normal. No respiratory distress. Breath sounds: Normal breath sounds. No wheezing, rhonchi or rales. Abdominal: General: Bowel sounds are normal. Palpations: Abdomen is soft. Musculoskeletal: Cervical back: Neck supple. Right lower leg: No edema. Left lower leg: No edema. Skin: General: Skin is warm and dry. Neurological: General: No focal deficit present. Mental Status: He is alert and oriented to person, pl (more content not included)... Normal [facility] Basophil percentageOrdered B y: Tracy Layne on 01-02-2023 Bilirubin [Mass/Vol] 0.60 mg/dL 0.20-1.00 [facility] Comment on above: For patients on eltr ombopag therapy, use of Dimension [place] TBIL is not recommended. Chloride [Moles/Vol] 104 mmol/L 98-107 [facility] Glucose [Mass/Vol] 91 mg/dL 74-106 [facility] Potassium [Moles/Vol] 3.4 mmol/L 3.5-5.1 [facility] Protein [Mass/Vol] 8.0 g/dL 6.4-8.2 [facility] Sodium [Moles/Vol] 138 mmol/L 136-145 [facility] Laboratory - Chemistry and C hemistry - challengeOrdered By: Tracy Layne on 01-02-2023 ALP [Catalytic activity/Vol] 106 U/L 45-117 [facility] ALT [Catalytic activity/Vol] 77 U/L 16-61 [facility] CO2 [Moles/Vol] 32.0 mmol/L 21.0-32.0 [facility] Globulin (S) [Mass/Vol] 4.0 g/dL 2.2-4.2 [facility] Magnesium [Mass/Vol] 2.5 mg/dL 1.6-2.6 [facility] Urea nitrogen/Creatinine [Mass ratio] 14.8 mg/mg 10-20 [facility] No Panel InformationOrdered By: Tracy Layne on 01-02-2023 Estimated GFR (MDRD) Amer 90 mL/min >60 [facility] Comment on above: GFR Calc Estimated GFR (MDRD) Non-Af Amer 74 mL/min >60 [facility] Comment on above: Non- GFR Calc Thyroid Stimulating Hormone (TSH) 1.16 uIU/mL 0.358-3.74 [facility] Serum or plasma albumin avinash urement (mass/volume)Ordered By: Tracykadi Layne on 01-02-2023 Albumin [Mass/Vol] 4.0 g/dL 3.2-5.0 [facility] Serum or plasma albumin/glob ulin mass ratioOrdered By: Tracy Roverto on 01-02-2023 Albumin/Globulin [Mass ratio] 1.0 {ratio} 0.9-2.4 [facility] Serum or plasma calcium avinash urement (mass/volume)Ordered By: Tracy Layne on 01-02-2023 Calcium [Mass/Vol] 9.2 mg/dL 8.5-10.1 [facility] Serum or plasma creatinine m easurement (mass/volume)Ordered By: Tracy Roverto on 01-02-2023 Creatinine [Mass/Vol] 1.08 mg/dL 0.70-1.30 [facility] Comment on above: The validity of the calculated GFR & GFRAA in patients over 70 years has not been determined. Clinical correlation is essential. Serum or plasma urea nitroge n measurement (mass/volume)Ordered By: Tracy Layne on 01-02-2023 Urea nitrogen [Mass/Vol] 16 mg/dL 7-18 [facility] Thin prep Papanicolaou smear with manual screeningOrdered By: Tracy Roverto on 01-02-2023 Thin prep Papanicolaou smear with manual screening 43 U/L 15-37 [facility] Thin prep Papanicolaou smear with manual screening 2 5-15 [facility] Absolute lymphocyte countOrd ered By: Paula Nicole on 12-16-2022 Lymphocytes Auto (Unsp spec) [#/Vol] 1.47 10*3/uL 0.83-4.51 [facility] Basophil percentageOrdered B y: Paula Nicole on 12-16-2022 Basophils/100 WBC (Bld) 0.9 % 0-1 [facility] Bilirubin [Mass/Vol] 0.50 mg/dL 0.20-1.00 [facility] Comment on above: For patients on eltr ombopag therapy, use of Dimension [place] TBIL is not recommended. Chloride [Moles/Vol] 104 mmol/L 98-107 [facility] Cholesterol [Mass/Vol] 144 mg/dL <200 [facility] Comment on above: <200 mg/dL Desirable 200-240 mg/dL Borderline >240 mg/dL High Risk Eosinophils/100 WBC (Bld) 2.1 % 0-5 [facility] Glucose [Mass/Vol] 84 mg/dL 74-106 [facility] Neutrophils (Bld) [#/Vol] 4.4 10*3/uL 2.0-7.7 [facility] Neutrophils/100 WBC (Bld) 65.2 % 47-70 [facility] Potassium [Moles/Vol] 3.4 mmol/L 3.5-5.1 [facility] Protein [Mass/Vol] 7.6 g/dL 6.4-8.2 [facility] Sodium [Moles/Vol] 139 mmol/L 136-145 [facility] Triglyceride [Mass/Vol] 42 mg/dL <199 [facility] Comment on above: The drugs N-Acetylcy steine and Metamizole may falsely depress this assay.Serum Triglycerides Reference Interval Normal <150 mg/dL Borderline high 150 - 199 mg/dL High 200 - 499 mg/dL Very High > or = 500 mg/dL WBC (Bld) [#/Vol] 6.8 10*3/uL 4.4-11.0 [facility] Blood erythrocytes count (nu mber/volume)Ordered By: Paula Nicole on 12-16-2022 RBC (Bld) [#/Vol] 4.74 10*6/uL 4.6-6.2 [facility] Blood hemoglobin measurement (mass/volume)Ordered By: Paula Nicole on 12-16-2022 Hemoglobin (Bld) [Mass/Vol] 13.9 g/dL 13.0-16.5 [facility] Blood lymphocytes/100 leukoc ytesOrdered By: Paula Nicole on 12-16-2022 Lymphocytes/100 WBC (Bld) 21.8 % 19-41 [facility] Blood monocytes/100 leukocyt esOrdered By: Paula Nicole on 12-16-2022 Monocytes/100 WBC (Bld) 9.9 % 0-10 [facility] Blood platelet mean volumeOr dered By: Paula Nicole on 12-16-2022 Platelet mean volume (Bld) [Entitic vol] 11.8 fL 6.2-12.0 [facility] Determination of erythrocyte mean corpuscular volume (MCV)Ordered By: Paula Nicole on 12-16-2022 MCV (RBC) [Entitic vol] 90.5 fL 80-94 [facility] Hematocrit Auto (Bld) [Volum e fraction]Ordered By: Paula Nicole on 12-16-2022 Hematocrit (Bld) [Volume fraction] 42.9 % 40-54 [facility] - Chemistry and C hemistry - challengeOrdered By: Paula Nicole on 12-16-2022 ALP [Catalytic activity/Vol] 97 U/L 45-117 [facility] ALT [Catalytic activity/Vol] 76 U/L 16-61 [facility] CO2 [Moles/Vol] 27.0 mmol/L 21.0-32.0 [facility] Globulin (S) [Mass/Vol] 3.8 g/dL 2.2-4.2 [facility] Urea nitrogen/Creatinine [Mass ratio] 25.6 mg/mg 10-20 [facility] - Hematology and Cell countsOrdered By: Paula Nicole on 12-16-2022 Erythrocyte distribution width (RBC) [Entitic vol] 45.0 fL 35.1-43.9 [facility] Erythrocyte distribution width (RBC) [Ratio] 13.5 % 11.6-14.6 [facility] Immature granulocytes/100 WBC (Bld) 0.100 % 0.0-0.9 [facility] Comment on above: IG% - Immature Granu locytes (promyelocytes, myelocytes and metamyelocytes) > 1% indicates that a LEFT SHIFT is Present. MCH (RBC) [Entitic mass] 29.3 pg 27.0-32.0 [facility] Nucleated RBC/100 WBC (Bld) [Ratio] 0 % 0-5 [facility] MCHC Auto (RBC) [Mass/Vol]Or dered By: Paula Nicole on 12-16-2022 MCHC (RBC) [Mass/Vol] 32.4 g/dL 32-36 [facility] No Panel InformationOrdered By: Paula Nicole on 12-16-2022 Estimated GFR (MDRD) Amer 117 mL/min >60 [facility] Comment on above: GFR Calc Estimated GFR (MDRD) Non-Af Amer 97 mL/min >60 [facility] Comment on above: Non- GFR Calc Prostate Specific Antigen Screen 1.47 ng/mL 0.00-4.00 [facility] Comment on above: This test was perfor med using the TPSA assay method for the[employer] chemistry system. Values obtained with differentassay methods cannot be used interchangably.When changing PSA assays in the course of monitoring apatient, additional sequential testing should be carriedout to confirm baseline values. Thyroid Stimulating Hormone (TSH) 0.84 uIU/mL 0.358-3.74 [facility] Urine Microalbumin/Creatinin e Ratio 16.5 mg/g CRE <30 [facility] Platelets bldOrdered By: Emigdio Nicole on 12-16-2022 Platelets (Bld) [#/Vol] 205 10*3/uL 150-450 [facility] Serum or plasma albumin avinahs urement (mass/volume)Ordered By: Paula Nicole on 12-16-2022 Albumin [Mass/Vol] 3.8 g/dL 3.2-5.0 [facility] Serum or plasma albumin/glob ulin mass ratioOrdered By: Paula Nicole on 12-16-2022 Albumin/Globulin [Mass ratio] 1.0 {ratio} 0.9-2.4 [facility] Serum or plasma calcium avinash urement (mass/volume)Ordered By: Paula Nicole on 12-16-2022 Calcium [Mass/Vol] 9.3 mg/dL 8.5-10.1 [facility] Serum or plasma cholesterol in HDL measurement (mass/volume)Ordered By: Paula Nicole on 12-16-2022 Cholesterol in HDL [Mass/Vol] 66 mg/dL >40 [facility] Comment on above: The drugs N-Acetylcy steine and Metamizole may falsely depress this assay. Reference Range HDL <40 mg/dL Low HDL Cholesterol HDL >or= 60 mg/dL High HDL Cholesterol Serum or plasma cholesterol in VLDL measurement (mass/volume)Ordered By: Paula Nicole on 12-16-2022 Cholesterol in VLDL [Mass/Vol] 8 mg/dL 5-40 [facility] Serum or plasma creatinine m easurement (mass/volume)Ordered By: Paula Nicole on 12-16-2022 Creatinine [Mass/Vol] 0.86 mg/dL 0.70-1.30 [facility] Comment on above: The validity of the calculated GFR & GFRAA in patients over 70 years has not been determined. Clinical correlation is essential. Serum or plasma low density lipoprotein (LDL) cholesterol measurement (mass/volume)Ordered By: Paula Nicole on 12-16-2022 Cholesterol in LDL [Mass/Vol] 70 mg/dL 0-130 [facility] Serum or plasma urea nitroge n measurement (mass/volume)Ordered By: Paula Nicole on 12-16-2022 Urea nitrogen [Mass/Vol] 22 mg/dL 7-18 [facility] Thin prep Papanicolaou smear with manual screeningOrdered By: Paula Nicole on 12-16-2022 Thin prep Papanicolaou smear with manual screening 41 U/L 15-37 [facility] Thin prep Papanicolaou smear with manual screening 8 5-15 [facility] Thin prep Papanicolaou smear with manual screening 17.0 mg/L NO RANGE EST. [facility] Urine creatinine measurement (mass/volume)Ordered By: Paula Nicole on 12-16-2022 Creatinine (U) [Mass/Vol] 103.00 mg/dL NO RANGE EST. [facility] Whole blood hemoglobin A1c/t otal hemoglobin ratio (mass fraction)Ordered By: Paula Nicole on 12-16-2022 HbA1c (Bld) [Mass fraction] 6.1 % 3.8-5.6 [facility] Comment on above: Normal < 5.7 % Predi abetic 5.7 - 6.4 % Diabetic >or= 6.5 % Please note range changes. Absolute lymphocyte countOrd ered By: Noris Vega on 06-04-2022 Lymphocytes Auto (Unsp spec) [#/Vol] 1.27 10*3/uL 0.83-4.51 [facility] Basophil percentageOrdered B y: Noris Vega on 06-04-2022 Basophils/100 WBC (Bld) 0.7 % 0-1 [facility] Bilirubin [Mass/Vol] 0.70 mg/dL 0.20-1.00 [facility] Comment on above: For patients on eltr ombopag therapy, use of Dimension [place] TBIL is not recommended. Chloride [Moles/Vol] 104 mmol/L 98-107 [facility] Cholesterol [Mass/Vol] 211 mg/dL <200 [facility] Comment on above: <200 mg/dL Desirable 200-240 mg/dL Borderline >240 mg/dL High Risk Eosinophils/100 WBC (Bld) 1.7 % 0-5 [facility] Glucose [Mass/Vol] 85 mg/dL 74-106 [facility] Neutrophils (Bld) [#/Vol] 3.5 10*3/uL 2.0-7.7 [facility] Neutrophils/100 WBC (Bld) 64.4 % 47-70 [facility] Potassium [Moles/Vol] 3.3 mmol/L 3.5-5.1 [facility] Protein [Mass/Vol] 7.3 g/dL 6.4-8.2 [facility] Sodium [Moles/Vol] 137 mmol/L 136-145 [facility] Triglyceride [Mass/Vol] 75 mg/dL <199 [facility] Comment on above: The drugs N-Acetylcy steine and Metamizole may falsely depress this assay.Serum Triglycerides Reference Interval Normal <150 mg/dL Borderline high 150 - 199 mg/dL High 200 - 499 mg/dL Very High > or = 500 mg/dL WBC (Bld) [#/Vol] 5.5 10*3/uL 4.4-11.0 [facility] Blood erythrocytes count (nu mber/volume)Ordered By: Noris Vega on 06-04-2022 RBC (Bld) [#/Vol] 4.60 10*6/uL 4.6-6.2 [facility] Blood hemoglobin measurement (mass/volume)Ordered By: Noris Vega on 06-04-2022 Hemoglobin (Bld) [Mass/Vol] 13.1 g/dL 13.0-16.5 [facility] Blood lymphocytes/100 leukoc ytesOrdered By: [facility] Silvia on 06-04-2022 Lymphocytes/100 WBC (Bld) 23.3 % 19-41 [facility] Blood monocytes/100 leukocyt esOrdered By: [facility] 06-[facility]-2022 Monocytes/100 WBC (Bld) 9.5 % 0-10 [facility] Blood platelet mean volumeOr dered By: [facility] Silvia on 06-04-2022 Platelet mean volume (Bld) [Entitic vol] 11.3 fL 6.2-12.0 [facility] Determination of erythrocyte mean corpuscular volume (MCV)Ordered By: [facility] Silvia on 06-04-2022 MCV (RBC) [Entitic vol] 89.3 fL 80-94 [facility] Hematocrit Auto (Bld) [Volum e fraction]Ordered By: [facility] hospital[facility] on 06-04-2022 Hematocrit (Bld) [Volume fraction] 41.1 % 40-54 [facility] - Chemistry and C hemistry - challengeOrdered By: [facility] on 06-04-2022 ALP [Catalytic activity/Vol] 103 U/L 45-117 [facility] ALT [Catalytic activity/Vol] 32 U/L 16-61 [facility] CO2 [Moles/Vol] 26.0 mmol/L 21.0-32.0 [facility] Globulin (S) [Mass/Vol] 3.5 g/dL 2.2-4.2 [facility] Urea nitrogen/Creatinine [Mass ratio] 21.0 mg/mg 10-20 [facility] - Hematology and Cell countsOrdered By: [facility] on 06-04-2022 Erythrocyte distribution width (RBC) [Entitic vol] 44.1 fL 35.1-43.9 [facility] Erythrocyte distribution width (RBC) [Ratio] 13.4 % 11.6-14.6 [facility] Immature granulocytes/100 WBC (Bld) 0.400 % 0.0-0.9 [facility] Comment on above: IG% - Immature Granu locytes (promyelocytes, myelocytes and metamyelocytes) > 1% indicates that a LEFT SHIFT is Present. MCH (RBC) [Entitic mass] 28.5 pg 27.0-32.0 [facility] Nucleated RBC/100 WBC (Bld) [Ratio] 0 % 0-5 [facility] MCHC Auto (RBC) [Mass/Vol]Or dered By: Noris Vega on 06-04-2022 MCHC (RBC) [Mass/Vol] 31.9 g/dL 32-36 [facility] No Panel InformationOrdered By: Noris Vega on 06-04-2022 Estimated GFR (MDRD) Amer 134 mL/min >60 [facility] Comment on above: GFR Calc Estimated GFR (MDRD) Non-Af Amer 111 mL/min >60 [facility] Comment on above: Non- GFR Calc Platelets bldOrdered By: Nilesh Vega on 06-04-2022 Platelets (Bld) [#/Vol] 235 10*3/uL 150-450 [facility] Serum or plasma albumin avinash urement (mass/volume)Ordered By: Noris Vega on 06-04-2022 Albumin [Mass/Vol] 3.8 g/dL 3.2-5.0 [facility] Serum or plasma albumin/glob ulin mass ratioOrdered By: Noris Vega on 06-04-2022 Albumin/Globulin [Mass ratio] 1.1 {ratio} 0.9-2.4 [facility] Serum or plasma calcium avinash urement (mass/volume)Ordered By: Noris Vega on 06-04-2022 Calcium [Mass/Vol] 9.3 mg/dL 8.5-10.1 [facility] Serum or plasma cholesterol in HDL measurement (mass/volume)Ordered By: Noris Vega on 06-04-2022 Cholesterol in HDL [Mass/Vol] 62 mg/dL >40 [facility] Comment on above: The drugs N-Acetylcy steine and Metamizole may falsely depress this assay. Reference Range HDL <40 mg/dL Low HDL Cholesterol HDL >or= 60 mg/dL High HDL Cholesterol Serum or plasma cholesterol in VLDL measurement (mass/volume)Ordered By: Noris Vega on 06-04-2022 Cholesterol in VLDL [Mass/Vol] 15 mg/dL 5-40 [facility] Serum or plasma creatinine m easurement (mass/volume)Ordered By: Noris Vega on 06-04-2022 Creatinine [Mass/Vol] 0.76 mg/dL 0.70-1.30 [facility] Comment on above: The validity of the calculated GFR & GFRAA in patients over 70 years has not been determined. Clinical correlation is essential. Serum or plasma low density lipoprotein (LDL) cholesterol measurement (mass/volume)Ordered By: Noris [facility] hospital[facility]onte on 06-04-2022 Cholesterol in LDL [Mass/Vol] 134 mg/dL 0-130 [facility] Serum or plasma urea nitroge n measurement (mass/volume)Ordered By: [facility] on 06-04-2022 Urea nitrogen [Mass/Vol] 16 mg/dL 7-18 [facility] Thin prep Papanicolaou smear with manual screeningOrdered By: [facility] Hospitalde[facility] on 06-04-2022 Thin prep Papanicolaou smear with manual screening 24 U/L 15-37 [facility] Thin prep Papanicolaou smear with manual screening 7 5-15 [facility] Absolute lymphocyte counton 09-25-2021 Lymphocytes Auto (Unsp spec) [#/Vol] 1.35 10*3/uL 0.83-4.51 [facility] Work Phone: Basophil percentageon 2021 Basophils/100 WBC (Bld) 0.7 % 0-1 [facility] Work Phone: Bilirubin [Mass/Vol] 0.80 mg/dL 0.20-1.00 [facility] Work Phone: Comment on above: For patients on eltr ombopag therapy, use of Dimension [place] TBIL is not recommended. Chloride [Moles/Vol] 104 mmol/L 98-107 [facility] Work Phone: Cholesterol [Mass/Vol] 155 mg/dL <200 [facility] Work Phone: Comment on above: <200 mg/dL Desirable 200-240 mg/dL Borderline >240 mg/dL High Risk Eosinophils/100 WBC (Bld) 1.4 % 0-5 [facility] Work Phone: Glucose [Mass/Vol] 85 mg/dL 74-106 [facility] Work Phone: [phone] Neutrophils (Bld) [#/Vol] 3.6 10*3/uL 2.0-7.7 [facility] Work Phone: [phone] Neutrophils/100 WBC (Bld) 64.1 % 47-70 [facility] Work Phone: [phone] Potassium [Moles/Vol] 3.7 mmol/L 3.5-5.1 [facility] Work Phone: [phone] Protein [Mass/Vol] 7.1 g/dL 6.4-8.2 [facility] Work Phone: [phone] Sodium [Moles/Vol] 139 mmol/L 136-145 [facility] Work Phone: [phone] Triglyceride [Mass/Vol] 48 mg/dL <199 [facility] Work Phone: Comment on above: The drugs N-Acetylcy steine and Metamizole may falsely depress this assay.Serum Triglycerides Reference Interval Normal <150 mg/dL Borderline high 150 - 199 mg/dL High 200 - 499 mg/dL Very High > or = 500 mg/dL WBC (Bld) [#/Vol] 5.6 10*3/uL 4.4-11.0 [facility] Work Phone: Blood erythrocytes count (nu mber/volume)on 09-25-2021 RBC (Bld) [#/Vol] 4.60 10*6/uL 4.6-6.2 [facility] Work Phone: [phone] Blood hemoglobin measurement (mass/volume)on 09-25-2021 Hemoglobin (Bld) [Mass/Vol] 13.3 g/dL 13.0-16.5 [facility] Work Phone: Blood lymphocytes/100 leukoc yteson 09-25-2021 Lymphocytes/100 WBC (Bld) 24.1 % 19-41 [facility] Work Phone: Blood monocytes/100 leukocyt eson 09-25-2021 Monocytes/100 WBC (Bld) 9.3 % 0-10 [facility] Work Phone: Blood platelet mean volumeon 09-25-2021 Platelet mean volume (Bld) [Entitic vol] 11.7 fL 6.2-12.0 [facility] Work Phone: Determination of erythrocyte mean corpuscular volume (MCV)on 09-25-2021 MCV (RBC) [Entitic vol] 89.3 fL 80-94 [facility] Work Phone: Hematocrit Auto (Bld) [Volum e fraction]on 09-25-2021 Hematocrit (Bld) [Volume fraction] 41.1 % 40-54 [facility] Work Phone: Laboratory - Chemistry and C hemistry - challengeon 09-25-2021 ALP [Catalytic activity/Vol] 101 U/L 45-117 [facility] Work Phone: ALT [Catalytic activity/Vol] 58 U/L 16-61 [facility] Work Phone: CO2 [Moles/Vol] 27.0 mmol/L 21.0-32.0 [facility] Work Phone: Globulin (S) [Mass/Vol] 3.3 g/dL 2.2-4.2 [facility] Work Phone: Urea nitrogen/Creatinine [Mass ratio] 22.6 mg/mg 10-20 [facility] Work Phone: Laboratory - Hematology and Cell countson 09-25-2021 Erythrocyte distribution width (RBC) [Entitic vol] 44.6 fL 35.1-43.9 [facility] Work Phone: Erythrocyte distribution width (RBC) [Ratio] 13.7 % 11.6-14.6 [facility] Work Phone: Immature granulocytes/100 WBC (Bld) 0.400 % 0.0-0.9 [facility] Work Phone: Comment on above: IG% - Immature Granu locytes (promyelocytes, myelocytes and metamyelocytes) > 1% indicates that a LEFT SHIFT is Present. MCH (RBC) [Entitic mass] 28.9 pg 27.0-32.0 [facility] Work Phone: [phone] Nucleated RBC/100 WBC (Bld) [Ratio] 0 % 0-5 [facility] Work Phone: [phone] MCHC Auto (RBC) [Mass/Vol]on 09-25-2021 MCHC (RBC) [Mass/Vol] 32.4 g/dL 32-36 [facility] Work Phone: [phone] No Panel Informationon 09-25 Estimated GFR (MDRD) Amer 128 mL/min >60 [facility] Work Phone: [phone] Comment on above: GFR Calc Estimated GFR (MDRD) Non-Af Amer 106 mL/min >60 [facility] Work Phone: [phone] Comment on above: Non- GFR Calc Platelets bldon 09-25-2021 Platelets (Bld) [#/Vol] 217 10*3/uL 150-450 [facility] Work Phone: [phone] Serum or plasma albumin avinash urement (mass/volume)on 09-25-2021 Albumin [Mass/Vol] 3.8 g/dL 3.2-5.0 [facility] Work Phone: [phone] Serum or plasma albumin/glob ulin mass ratioon 09-25-2021 Albumin/Globulin [Mass ratio] 1.2 {ratio} 0.9-2.4 [facility] Work Phone: [phone] Serum or plasma calcium avinash urement (mass/volume)on 09-25-2021 Calcium [Mass/Vol] 9.1 mg/dL 8.5-10.1 [facility] Work Phone: [phone] Serum or plasma cholesterol in HDL measurement (mass/volume)on 09-25-2021 Cholesterol in HDL [Mass/Vol] 61 mg/dL >40 [facility] Work Phone: [phone] Comment on above: The drugs N-Acetylcy steine and Metamizole may falsely depress this assay. Reference Range HDL <40 mg/dL Low HDL Cholesterol HDL >or= 60 mg/dL High HDL Cholesterol Serum or plasma cholesterol in VLDL measurement (mass/volume)on 09-25-2021 Cholesterol in VLDL [Mass/Vol] 10 mg/dL 5-40 [facility] Work Phone: [phone] Serum or plasma creatinine m easurement (mass/volume)on 09-25-2021 Creatinine [Mass/Vol] 0.80 mg/dL 0.70-1.30 [facility] Work Phone: [phone] Comment on above: The validity of the calculated GFR & GFRAA in patients over 70 years has not been determined. Clinical correlation is essential. Serum or plasma low density lipoprotein (LDL) cholesterol measurement (mass/volume)on 09-25-2021 Cholesterol in LDL [Mass/Vol] 84 mg/dL 0-130 [facility] Work Phone: [phone] Serum or plasma urea nitroge n measurement (mass/volume)on 09-25-2021 Urea nitrogen [Mass/Vol] 18 mg/dL 7-18 [facility] Work Phone: [phone] Thin prep Papanicolaou smear with manual screeningon 09-25-2021 Thin prep Papanicolaou smear with manual screening 36 U/L 15-37 [facility] Work Phone: [phone] Thin prep Papanicolaou smear with manual screening 8 5-15 [facility] Work Phone: [phone] Laboratory - Drug toxicology on 06-01-2021 Amphetamines Ql (U) Negative <1000 ng/mL [facility] Work Phone: [phone] Benzodiazepines Ql (U) Negative < 200 ng/mL [facility] Work Phone: [phone] Cannabinoids Screen Ql (U) Negative < 50 ng/mL [facility] Work Phone: [phone] Cocaine Ql (U) Negative < 300 ng/mL [facility] Work Phone: [phone] Opiates Ql (U) Negative < 300 ng/mL [facility] Work Phone: No Panel Informationon 06-01 MDMA (Ecstasy) Screen Negative < 500 ng/mL [facility] Work Phone: Urine Barbiturates Screen Negative < 200 ng/mL [facility] Work Phone: Urine Drug Screen Comment [facility] Work Phone: Comment on above: CONFIRMATORY TESTING FOR ALL POSITIVE URINE DRUG SCREENRESULTS WILL ONLY BE SENT OUT UPON PHYSICIAN ORDER. VISTA Urine Drug Screen methods provide only preliminaryanalytical test results. A more specific alternate chemicalmethod must be used in order to obtain a confirmedanalytical result. Gas chromatography/mass spectrometery(GC/MS) is the preferred confirmatory method. Clinicalconsideration and professional judgement should be appliedto any drug of abuse test result, particularly whenpreliminary positive results are used. URINE TCA TESTING MUST BE ORDERED SEPARATELY. USE TESTMNEMONIC: [facility] Urine Methadone Screen Negative < 300 ng/mL [facility] Work Phone: Urine phencyclidine (PCP) de tectionon 06-01-2021 Phencyclidine Ql (U) Negative < 25 ng/mL [facility] Work Phone: ECG B/O W INTERP (MED OFFICE ) [facility] Vital Signs Date Time Vital Sign Value Performing Clinician James caceres 02-17-2023 11:17-0500 Body height 175.3 cm Fredy Amos MD Work Phone: [facility] 02-17-2023 11:17-0500 Body weight 108.32 kg Fredy Amos MD Work Phone: [facility] 02-17-2023 11:17-0500 Diastolic blood pressure 89 mm[Hg] Fredy Amos MD Work Phone: [facility] 02-17-2023 11:17-0500 Heart rate 63 /min Fredy Amos MD Work Phone: [facility] 02-17-2023 11:17-0500 SaO2% (BldA) [Mass fraction] 96 % Fredy Amos MD Work Phone: [facility] 02-17-2023 11:17-0500 Systolic blood pressure 153 mm[Hg] Fredy Amos MD Work Phone: [facility] 01-02-2023 13:05-0400 Body height 177.8 cm DO Paulajesica Wileynger Work Phone: [facility] 01-02-2023 13:05-0400 Body mass index (BMI) [Ratio] 31.5 kg/m2 DO Paula Bonnie Work Phone: [facility] 01-02-2023 13:05-0400 Body weight 99.79 kg DO Paula Bonnie Work Phone: [facility] 01-02-2023 13:05-0400 Diastolic blood pressure 73 mm[Hg] DO Paula Bonnie Work Phone: [facility] 01-02-2023 13:05-0400 Heart rate 73 /min DO Paula Bonnie Work Phone: [facility] 01-02-2023 13:05-0400 Respiratory rate 18 /min DO Paula Bonnie Work Phone: [facility] 01-02-2023 13:05-0400 Systolic blood pressure 153 mm[Hg] DO Paulajesica Wileynger Work Phone: [facility] Encounters Encounter Date Encounter Type Care Provider Facility Start: 10-08-2024 ambulatory Kenneth Ramirez lity:[facility] Start: 06-01-2024 End: 06-01-2024 ambulatory Loretta Camp MD Work Phone: [facility] Work Phone: Start: 06-01-2024 End: 06-01-[address] Loretta Camp MD -Laboratory, [place] Work Phone: Start: 06-01-2024 End: 06-01-2024 ambulatory Loretta Camp Facility:[facility] Start: 12-15-2023 End: 12-15-2023 ambulatory Keny Murray Facility:[facility] Start: 02-17-2023 End: 02-17-2023 ambulatory TRACY ROVERTO Facility:[place] [facility] Start: 02-17-2023 End: 02-17-2023 Patient encounter procedure Fredy Amos MD Work Phone: [facility] Comment on above: SVT (supraventricula r tachycardia) (Primary Dx); Bicuspid aortic valve; Obesity, Class II, BMI 35-39.9; DENILSON (obstructive sleep apnea); Primary narcolepsy without cataplexy Start: 02-03-2023 Non-patient / Non-visit DO Emigdio hamida Bonnie Work Phone: [facility] Start: 01-31-2023 Non-patient / Non-visit DO Ascencionmando hamida Nicole Work Phone: [facility] Start: 01-31-2023 End: 01-31-2023 ambulatory DO Paula Nicole Work Phone: [facility] Work Phone: Start: 01-31-2023 End: 01-31-2023 Patient encounter procedure DO Paulajesica Wileynger Work Phone: [facility] Work Phone: Start: 01-14-2023 End: 01-14-2023 ambulatory DO Paula M Bonnie Work Phone: [facility] Work Phone: Start: 01-14-2023 End: 01-14-2023 Patient encounter procedure DO Paulajesica Wileynger Work Phone: [facility]-Cat Scan, [facility] Work Phone: Start: 01-13-2023 Chart abstracting Brenda Conley MA [facility] Start: 01-02-2023 End: 01-02-2023 ambulatory DO Paula Wheelerer Work Phone: [facility] Work Phone: Start: 01-02-2023 End: 01-02-2023 Patient encounter procedure DO Paula Bonnie Work Phone: [facility] Work Phone: Start: 12-16-2022 End: 12-16-2022 ambulatory [facility] Work Phone: Start: 12-16-2022 End: 12-16-2022 Patient encounter procedure [facility] Work Phone: Start: 06-04-2022 End: 06-04-2022 ambulatory [facility] Work Phone: Start: 06-04-2022 End: 06-04-2022 Patient encounter procedure [facility] Start: 09-25-2021 End: 09-25-2021 Patient encounter procedure [facility] Start: 06-01-2021 End: 06-01-2021 Patient encounter procedure [facility] Procedures Date Procedure Procedure Detail Performing Clinician Start: 02-17-2023 Ecg routine ecg w/le ast 12 lds w/i&r Fredy Amos MD Work Phone: Start: 01-14-2023 CT angiography of ch est with contrast DO Paula Nicole Work Phone: Plan of Treatment Date Care Activity Detail Author Start: 04-06-2025 Urine microalbumin profile DTaP,Tdap,Td Vaccine (2 - Td or Tdap) [facility] Start: 01-02-2023 Patient referral [facility] Work Phone: Start: 2022 RSV Vaccine (1 - 1-dose 60+ series) RSV Vaccine (1 - 1-dose 60+ series) [facility] Start: 11-01-2022 Covid-19 Vaccine ( season) Covid-19 Vaccine () [facility] Start: 11-01-2022 Influenza vaccination Influenza Vaccine (#1) [facility] Start: 03-03-2022 Depression Assessment Depression Assessment [facility] Start: 2017 Prostate Cancer Screening Discussion Prostate Cancer Screening Discussion [facility] Start: 2017 Prostate specific antigen measurement Prostate Cancer Screening Discussion [facility] Start: 2012 Shingrix Vaccine (1 of 2) Shingrix Vaccine (1 of 2) [facility] Start: 12-18-2007 Cologuard (FIT-DNA) Cologuard (FIT-DNA) [facility] Start: 12-18-2007 Colonoscopy Colonoscopy [facility] Start: 12-18-2007 Colorectal Cancer Screening Colorectal Cancer Screening [facility] Start: 12-18-[address] Colonography [facility] Start: 12-18-2007 Diabetes Screening Diabetes Screening [facility] Start: 12-18-2007 Fecal Occult Blood Fecal Occult Blood [facility] Start: 12-18-2007 Screening for malignant neoplasm of colon [facility] Start: 12-18-2007 Sigmoidoscopy Sigmoidoscopy [facility] Start: 1997 Lipid 1996 panel - Serum or Plasma Lipid Screening [facility] Start: 1997 Lipid panel Lipid Screening [facility] Start: 1981 Urine microalbumin profile DTaP,Tdap,Td Vaccine (1 - Tdap) [facility] Start: 1980 Hepatitis C Screening Hepatitis C Screening [facility] Start: 1980 Hepatitis C screening Hepatitis C Screening [facility] Start: 1980 HIV Screening HIV Screening [facility] Start: 1980 HIV screening HIV Screening [facility] Start: 06-18-1963 Covid-19 Vaccine (#1) Covid-19 Vaccine (#1) [facility] Cardiovascular stres s testing [facility] Patient referral [facility] Work Phone: [facility] Immunizations Immunization Date Immunization Notes Care Provider Fa cility 04-06-2015 tetanus toxoid, reduced diphtheria toxoid, and acellular pertussis vaccine, adsorbed Fredy Amos MD Work Phone: [facility] Work Phone: Payers Date Payer Category Payer Self-pay [id number] 2022 Unknown [id number] 2022 Unknown [employer] [id number] 2022-Present [phone] [address] [place] [address] PPO [id number] Unknown [id number] Unknown [id number] Unknown [id number] Unknown [id number] Social History Date Type Detail Facility Tobacco smoking stat [facility] Unknown if ever smoked [facility] Work Phone: Start: 1960 Sex Assigned At Male [facility] Start: 01-02-2023 Tobacco smoking stat [facility] Unknown if ever smoked [facility] Start: 01-02-2023 End: 01-13-2023 Tobacco smoking status NHIS Never smoked tobacco [facility] Start: 01-13-2023 End: 02-17-2023 Alcohol intake Ex-drinker (finding) [facility] Start: 01-13-2023 End: 02-17-2023 History of Social function [facility] Start: 01-13-2023 End: 02-17-2023 Tobacco use panel [facility] Start: 1960 Sex Assigned At Not on file [facility] Start: 02-17-2023 Tobacco use and exposure Smokeless tobacco non-user [facility] National Score (1-100), lower number is lower risk 63 [facility] Start: 06-07-2024 Sex Male (finding) [facility] Progress note 02-17-2023 Note Date & Type Note Facility 02-17-2023 Note HNO ID: [id number] Author: Fredy Amos MD Service: ? Author Type: Physician Type: Progress Notes Filed: 02/21/2023 7:25 PM Note Text: PRIMARY CARE PHYSICIAN: Paula Nicole [address] [place] [address] REFERRING PHYSICIAN: Tracy Layne [address] [facility] [id number] Patient Care Team: Paula Nicole DO as PCP - General (Family Medicine) Tracy Layne MD as Specialty Supervisor [employer] (Cardiology) Fredy Iniguez V as Specialty Supervisor [employer] (Internal Medicine) CHIEF COMPLAINT: Evaluation of arrhythmia HISTORY OF PRESENT ILLNESS: Mr. Boyd is a 62 year old male who presents today for evaluation of arrhythmia. He was at routine PCP office visit. He was noted to have an irregular rhythm. He wore surveillance system monitor for several days. This revealed intermittent tachycardia. He did not experience any symptoms while wearing the monitor. He states that week he wore the monitor was very busy at work, he was doing a lot of strenuous work. Heat always bothers him and these were hot days in the summer. Typically does not experience palpitations. No chest pain or shortness of breath. He has been on metoprolol for the past couple weeks, no side effects --- he was concerned about the potential for side effect of fatigue or sleepiness, due to history of narcolepsy. 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 Can't afford to be tired and such. I have confirmed and edited as necessary, the PFSH and ROS obtained by others. PAST MEDICAL HISTORY Diagnosis Date Abnormal heart rhythm Bicuspid aortic valve BMI 34.0-34.9,adult Dilated aortic root (HCC) Essential hypertension Hyperlipidemia Narcolepsy DENILSON (obstructive sleep apnea) SVT (supraventricular tachycardia) PAST SURGICAL HISTORY Procedure Laterality Date ECHOCARDIOGRAM 10/09/2020 EF 70% HOLTER MONITOR 7 day 12/04/2022-12/11/2022 SOCIAL HISTORY Social History Tobacco Use Smoking status: Never Smokeless tobacco: Never Substance Use Topics Alcohol use: Not Currently Drug use: Never FAMILY HISTORY Problem Relation Age of Onset Arrhythmia Father atrial fibrillation Cancer Father other (pacemaker) Father has a pacemaker or defibrillator since age 50 yrs Arrhythmia Sister possibly atrial fibrillation No Known Problems Sister No Known Problems Brother ALLERGIES: ALLERGIES Allergen Reactions Lisinopril Angioedema Patient does not remember having this MEDICATIONS: metoprolol tartrate, short acting, (LOPRESSOR) 25 mg tablet Take 1 tablet by mouth every 12 hours. modafinil (PROVIGIL) 200 mg tablet Take 200 mg by mouth once daily. potassium chloride 20 mEq TbER Take 1 tablet by mouth every afternoon. atorvastatin (LIPITOR) 40 mg tablet Take 40 mg by mouth once daily. caffeine 200 mg tab Take 200 mg by mouth once daily. He takes one to two tablets daily, due to narcolepsy losartan-hydroCHLOROthiazide (HYZAAR) 50-12.5 mg per tablet Take 1 tablet by mouth once daily. REVIEW OF SYSTEMS: Review of Systems Constitutional: Positive for malaise/fatigue. Negative for chills, fever and weight loss. Respiratory: Negative for cough, hemoptysis, sputum production, shortness of breath and wheezing. Cardiovascular: Negative for chest pain, palpitations, orthopnea, claudication, leg swelling and PND. Gastrointestinal: Negative for abdominal pain, blood in stool, melena, nausea and vomiting. Genitourinary: Negative for dysuria and hematuria. Musculoskeletal: Negative for falls and myalgias. Skin: Negative for rash. Neurological: Negative for dizziness, focal weakness, seizures and loss of consciousness. PHYSICAL EXAMINATION: BP 153/89 Pulse 63 Ht 5' 9 (1.75m) Wt 238 lb 12.8 oz (108.3kg) SpO2 96% BMI 35.25 kg/(m2). Physical Exam Vitals reviewed. Constitutional: General: He is not in acute distress. Appearance: Normal appearance. HENT: Head: Normocephalic and atraumatic. Cardiovascular: Rate and Rhythm: Normal rate and regular rhythm. Frequent Extrasystoles are present. Heart sounds: Normal heart sounds, S1 normal and S2 normal. No murmur heard. No friction rub. Pulmonary: Effort: Pulmonary effort is normal. No respiratory distress. Breath sounds: Normal breath sounds. No wheezing, rhonchi or rales. Abdominal: General: Bowel sounds are normal. Palpations: Abdomen is soft. Musculoskeletal: Cervical back: Neck supple. Right lower leg: No edema. Left lower leg: No edema. Skin: General: Skin is warm and dry. Neurological: General: No focal deficit present. Mental Status: He is alert and oriented to person, place, and time. Psychiatric: Mood and Affect: Mood normal. Behavior: Behavior normal. Thought Content: Thought content normal. CARDIOVASCULAR MEDICINE TESTING: Electrocardiogram: Sinus rhythm 61 bpm; PACs (P wave morphology/vector consistent with low atrial site, (more content not included)... [facility] History of Present illness Narrative 02-17-2023 Fredy Amos MD - 02/17/2023 11:20 AM EST Note Date & Type Note Facility 02-17-2023 History of Presen t illness Narrative PRIMARY CARE PHYSICIAN: Paula Nicole [address] [place] [address] REFERRING PHYSICIAN: Tracy Layne [address] [facility] [address] [facility] [address] Patient Care Team: Paula Nicole DO as PCP - General (Family Medicine) Tracy Layne MD as Specialty Supervisor [employer] (Cardiology) Fredy Iniguez V as Specialty Supervisor [employer] (Internal Medicine) CHIEF COMPLAINT: Evaluation of arrhythmia HISTORY OF PRESENT ILLNESS: Mr. Boyd is a 62 year old male who presents today for evaluation of arrhythmia. He was at routine PCP office visit. He was noted to have an irregular rhythm. He wore surveillance system monitor for several days. This revealed intermittent tachycardia. He did not experience any symptoms while wearing the monitor. He states that week he wore the monitor was very busy at work, he was doing a lot of strenuous work. Heat always bothers him and these were hot days in the summer. Typically does not experience palpitations. No chest pain or shortness of breath. He has been on metoprolol for the past couple weeks, no side effects --- he was concerned about the potential for side effect of fatigue or sleepiness, due to history of narcolepsy. 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 Can't afford to be tired and such. I have confirmed and edited as necessary, the PFSH and ROS obtained by others. PAST MEDICAL HISTORY Diagnosis Date Abnormal heart rhythm Bicuspid aortic valve BMI 34.0-34.9,adult Dilated aortic root (HCC) Essential hypertension Hyperlipidemia Narcolepsy DENILSON (obstructive sleep apnea) SVT (supraventricular tachycardia) PAST SURGICAL HISTORY Procedure Laterality Date ECHOCARDIOGRAM 10/09/2020 EF 70% HOLTER MONITOR 7 day 12/04/2022-12/11/2022 SOCIAL HISTORY Social History Tobacco Use Smoking status: Never Smokeless tobacco: Never Substance Use Topics Alcohol use: Not Currently Drug use: Never FAMILY HISTORY Problem Relation Age of Onset Arrhythmia Father atrial fibrillation Cancer Father other (pacemaker) Father has a pacemaker or defibrillator since age 50 yrs Arrhythmia Sister possibly atrial fibrillation No Known Problems Sister No Known Problems Brother ALLERGIES: ALLERGIES Allergen Reactions Lisinopril Angioedema Patient does not remember having this MEDICATIONS: metoprolol tartrate, short acting, (LOPRESSOR) 25 mg tablet Take 1 tablet by mouth every 12 hours. modafinil (PROVIGIL) 200 mg tablet Take 200 mg by mouth once daily. potassium chloride 20 mEq TbER Take 1 tablet by mouth every afternoon. atorvastatin (LIPITOR) 40 mg tablet Take 40 mg by mouth once daily. caffeine 200 mg tab Take 200 mg by mouth once daily. He takes one to two tablets daily, due to narcolepsy losartan-hydroCHLOROthiazide (HYZAAR) 50-12.5 mg per tablet Take 1 tablet by mouth once daily. REVIEW OF SYSTEMS: Review of Systems Constitutional: Positive for malaise/fatigue. Negative for chills, fever and weight loss. Respiratory: Negative for cough, hemoptysis, sputum production, shortness of breath and wheezing. Cardiovascular: Negative for chest pain, palpitations, orthopnea, claudication, leg swelling and PND. Gastrointestinal: Negative for abdominal pain, blood in stool, melena, nausea and vomiting. Genitourinary: Negative for dysuria and hematuria. Musculoskeletal: Negative for falls and myalgias. Skin: Negative for rash. Neurological: Negative for dizziness, focal weakness, seizures and loss of consciousness. PHYSICAL EXAMINATION: BP 153/89 Pulse 63 Ht 5' 9 (1.75m) Wt 238 lb 12.8 oz (108.3kg) SpO2 96% BMI 35.25 kg/(m^2). Physical Exam Vitals reviewed. Constitutional: General: He is not in acute distress. Appearance: Normal appearance. HENT: Head: Normocephalic and atraumatic. Cardiovascular: Rate and Rhythm: Normal rate and regular rhythm. Frequent Extrasystoles are present. Heart sounds: Normal heart sounds, S1 normal and S2 normal. No murmur heard. No friction rub. Pulmonary: Effort: Pulmonary effort is normal. No respiratory distress. Breath sounds: Normal breath sounds. No wheezing, rhonchi or rales. Abdominal: General: Bowel sounds are normal. Palpations: Abdomen is soft. Musculoskeletal: Cervical back: Neck supple. Right lower leg: No edema. Left lower leg: No edema. Skin: General: Skin is warm and dry. Neurological: General: No focal deficit present. Mental Status: He is alert and oriented to person, place, and time. Psychiatric: Mood and Affect: Mood normal. Behavior: Behavior normal. Thought Content: Thought content normal. CARDIOVASCULAR MEDICINE TESTING: Electrocardiogram: Sinus rhythm 61 bpm; PACs (P wave morphology/vector consistent with low atrial site, possibly left atrial); normal conduction intervals (NC 152 ms, QRS 88 ms); QTc 398 ms I have personally reviewed the Electrocardiogram. Cardiac monitoring 12/2022: episodes of SVT, seems most consistent with atrial tachycardia, rather than atrial fibrillation or atrial flutter 1. SVT (supraventricular tachycardia) - ICD9: 427.89, ICD10: I47.10 (primary diagnosis) 2. Bicuspid aortic valve - ICD9: 746.4, ICD10: Q23.1 3. Obesity, Class II, BMI 35-39.9 - ICD9: 278.00, ICD10: E66.9 4. DENILSON (obstructive sleep apnea) - ICD9: 327.23, ICD10: G47.33 5. Primary narcolepsy without cataplexy - ICD9: 347.00, ICD10: G47.419 IMPRESSION: Mr. Boyd has been found to have paroxysmal SVT, seems by cardiac monitoring to be most consistent with perhaps an atrial tachycardia although the fax quality of the report is poor. This arrhythmia is asymptomatic, not likely to be atrial fibrillation or atrial flutter so there is not stroke risk to consider. No obvious precipitating or exacerbating factor although he does take medication for narcolepsy that might exacerbate arrhythmia. He is being treated with a beta-selina medication which is reasonable. I would not at this point recommend catheter ablation for self-limited asymptomatic SVT. He is not very enthusiastic about undergoing a procedure anyway. I had a detailed discussion with Mr. Boyd regarding my evaluation and recommendations. After our discussion, Mr. Boyd expressed his understanding and I answered all his questions to his apparent satisfaction. PLAN AND RECOMMENDATIONS: Continue with current plan of care from EP standpoint. Return in about 1 year (around 02/18/2024), or if symptoms worsen or fail to improve. Fredy Amos MD 02/17/2023 Medical Decision Making: Problems: Moderate: New problem with uncertain prognosis Data: Unique source(s) for external note(s) reviewed: 2 Unique test result(s) reviewed: 3+ Unique test(s) ordered: 1 Risk: Moderate: Moderate risk from testing/treatment, Drug management and Decision on minor surgery w/ risk factors Medical Decision Making Level: 4 - Moderate documented in this encounter [facility] Nurse Note 02-17-2023 Alma Estrada MA - 02/17/2023 11:20 AM EST Note Date & Type Note Facility 02-17-2023 Nurse Note Patient wants to know if heart can go back to normal rhythm. documented in this encounter [facility] Evaluation note Note Date & Type Note Facility Evaluation note No assessment information availa [facility] Work Phone: Evaluation note Note Date & Type Note Facility Evaluation note Diagnosis Onset Date Bicuspid aortic valve chroni c Dilated aortic root chronic Narcolepsy chronic Supraventricular tachycardia chronic [facility] Work Phone: Evaluation note Note Date & Type Note Facility Evaluation note Diagnosis SVT (supraventricular tachycardia)- Primary Other specified cardiac dysrhythmias Bicuspid aortic valve Congenital insufficiency of aortic valve Obesity, Class II, BMI 35-39.9 Obesity, unspecified DENILSON (obstructive sleep apnea) Obstructive sleep apnea (adult) (pediatric) Primary narcolepsy without cataplexy documented in this encounter [facility] Reason for referral (narrative) Note Date & Type Note Facility Reason for referral (narrative) No reason for referral information available [facility] Work Phone: Chief Complaint and Reason for Visit Chief Complaint HYPERSOMNIA,SLEEP TE STING Chief Complaint EORDER Chief Complaint EORDER ABN HOLTER / ATRIAL TACH (BONNIE) Reason for Visit Bicuspid aortic valv e Dilated aortic root Narcolepsy Supraventricular tachycardia Chief Complaint EORDER ABN HOLTER / ATRIAL TACH (BONNIE) I77.810 Thoracic aortic ectasia Reason for Visit Bicuspid aortic valv e Dilated aortic root Narcolepsy Supraventricular tachycardia Chief Complaint EORDER ABN HOLTER / ATRIAL TACH (BONNIE) I77.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, HTN Thoracic aortic ectasia, HTN Reason for Visit Bicuspid aortic valv e Dilated aortic root Narcolepsy Supraventricular tachycardia Chief Complaint Admit Date Hypokalemia June 01, 2024 9:14 am Family History No Family History Records Found Relationship Condition Age at Onset Recorded Date/T jorden father Atrial fibrillation Unknown sister Atrial fibrillation Unknown Summary Purpose Advance Directives No Advanced Directives Records FoundNo Advanced Directives Records Found Additional Source Comments Goals (unrecognized section and content) Goals may be documented in a n alternate sectionGoals may be documented in an alternate sectionGoals may be documented in an alternate sectionGoals may be documented in an alternate sectionGoals may be documented in an alternate sectionGoals may be documented in an alternate sectionGoals may be documented in an alternate section Care Teams (unrecognized sec tion and content) Team Status: Active Member Role Status Dates Dr. Bean Brown MD Family Provider Active Paula Nicole DO Primary Care Provider Active Team Status: Inactive Member Role Status Dates Paula Nicole DO Primary Care Provider Active KATINA Stanley Attending Provider Active Team Status: Inactive Member Role Status Dates Paula Nicole DO Primary Care Provi melanie, Attending Provider, Referring Provider Active Team Status: Inactive Member Role Status Dates Paula Nicole DO Primary Care Provider, Referring Provider Active Dr. Tracy Layne MD Attending Provider Active Team Status: Inactive Member Role Status Dates Paula Nicole DO Primary Care Provider Active Dr. Tracy Layne MD Attending Provider, Referring Pr ovider Active Team Status: Active Member Role Status Dates Paula Nicole DO Primary Care Provider Active Dr. Tracy Layne MD Attending Provider Active Team Status: Active Member Role Status Dates Paula Nicole DO Primary Care Provider Active Dr. 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 Bean Brown MD Family Provider Active Loretta Camp MD Primary Care Provider Active Team Status: Inactive Member Role Status Dates Loretta Camp MD Primary Care Provider Active St art: June 01, 2024 End: June 01, 2024 Loretta Camp MD Attending Provider Active Start : June 01, 2024 End: June 01, 2024 Loretta Camp MD Referring Provider Active Start : June 01, 2024 End: June 01, 2024 Source Comments (unrecognize d section and content) In the event this informatio n is protected by the Federal Confidentiality of Alcohol and Drug Abuse Patient Records regulations: The Federal rules restrict any use of the information to criminally investigate or prosecute any alcohol or drug abuse patient.[facility] the event this information is protected by the Federal Confidentiality of Alcohol and Drug Abuse Patient Records regulations: The Federal rules restrict any use of the information to criminally investigate or prosecute any alcohol or drug abuse patient.[facility] Reason for Visit (unrecogniz ed section and content) Reason Comments CARD New Patient Consult (unrecognized sect ion and content) No Status Records FoundNo Status Records Found INFORMATION SOURCE (unrecogn ized section and content) DATE CREATED AUTHOR 02/22/2023 [facility] DATE CREATED AUTHOR AUTHOR'S ORGANIZ ATION 10/01/2024 [facility] FOR RECORDS PERTAINING TO PATIENTS WHO ARE OR HAVE BEEN ENROLLED IN A CHEMICAL DEPENDENCY/SUBSTANCEABUSE PROGRAM, SOME INFORMATION MAY BE OMITTED. This clinical summary was aggregated from multiple sources. Caution should be exercised in using it in the provision of clinical care. This summary normalizes information from multiple sources, and as a consequence, information in this document may materially change the coding, format and clinical context of patient data. In addition, data may be omitted in some cases. CLINICAL DECISIONS SHOULD BE BASED ON THE PRIMARY CLINICAL RECORDS. [facility] [email or web address] [facility]. provides no warranty or guarantee of the accuracy or completeness of information in this document.
[2024-10-08] MEDS: Lactated Ringers 1,000 ML 15 ML IV (06:33)
--- NOTE | 2024-10-08 06:42 | PCM.PRE.AN2 ---
ASA Classification* ASA Classification ASA Classification: 2 Assessment & Plan Anesthesia* Anesthesia Assessment Anesthesia Assessment: Discussed sedation and/or anesthesia options, risks, benefits, and alternatives with patient/parents/legal guardian/POA. Questions invited. The patient/parents/legal guardian/POA seems to understand and agrees to proceed with anesthesia plan. Reviewed the physical assessment, medical history, allergy history and patient home medications list prior to surgery/procedure/anesthetic and documented any changes. Performed airway and anesthesia risk assessments. Anesthesia Type Anesthesia Type: MAC History Source History Obtained from:: Patient and Chart Anesthesia Focused Assessment* Temperature: 98.5 F Pulse Rate: 69 Blood Pressure: 135/93 Respiratory Rate: 16 Pulse Ox: 96 Oxygen Delivery Method: Room Air Airway Assessment Mouth opens: >3 cm Mallampati Score: IV Teeth Condition: Intact Neck Range of motion (ROM): Limited ROM (Slight Decrease) Labs Anesthesia Preop lab: CBC WBC 6.8 K/mm3 (4.4-11.0) 12/15/23 11:15 12/15/23 RBC 4.99 M/mm3 (4.6-6.2) 12/15/23 11:15 12/15/23 Hgb 13.2 g/dL (13.0-16.5) 12/15/23 11:15 12/15/23 Hct 42.1 % (40-54) 12/15/23 11:15 12/15/23 Plt Count 220 K/mm3 (150-450) 12/15/23 11:15 12/15/23 CHEMISTRY Potassium 3.5 mmol/L (3.3-5.1) 06/01/24 09:20 06/01/24 Sodium 140 mmol/L (133-145) 06/01/24 09:20 06/01/24 Magnesium 2.5 mg/dL (1.6-2.6) 01/02/23 13:58 01/02/23 BUN 17 mg/dL (4-19) 06/01/24 09:20 06/01/24 Creatinine 0.83 mg/dL (0.70-1.20) 06/01/24 09:20 06/01/24 Glucose 107 mg/dL (70-99) H 06/01/24 09:20 06/01/24 TSH 1.16 uIU/mL (0.358-3.74) 01/02/23 13:58 01/02/23 COAG Pre-Assessment Diagnosis/Proposed Procedure Planned Operative Procedure(s): COLONOSCOPY-OA Anesthesia History 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 When Was Last Pacemaker Check QUESTION #4 FULL TEXT: You/Your Family Experience fever (hyperthermia) with Anesthesia Last Oral Intake Last Oral intake: Last Oral Intake NPO since 00:00 10/08/24 06:30 Meds taken in AM with sips of No 10/08/24 06:30 water? 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 professor Female No 10/05/24 12:08 HX of Motion Sickness Yes 10/05/24 12:08 HX of N/V After Surgery No 10/05/24 12:08 Non-Smoker No 10/05/24 12:08 Duration of Surgery greater No 10/05/24 12:08 than 60 minutes Number of Risk Factors 1 10/05/24 12:08 PONV Score Low Risk 10/05/24 12:08 Height & Weight Height & Weight: Anesthesia: Height & Weight Height 5 ft 10 in 10/08/24 06:30 Weight: 95 kg 10/08/24 06:30 Body Mass Index (BMI) 30.0 10/08/24 06:30 Respiratory Assessment Respiratory Assessment - manufacturing engineering professor: Respiratory Tract Infection Hx - manufacturing engineering professor Hx Respiratory Tract Infection No 10/05/24 12:08 STOP Sleep Apnea STOP Sleep Apnea - manufacturing engineering professor: STOP Sleep Apnea - manufacturing engineering professor Hx Hypertension Yes: CONTROLLED ON MED 10/05/24 12:08 Hx Sleep Apnea Yes 10/05/24 12:08 CPAP Yes 10/05/24 12:08 BIPAP No 10/05/24 12:08 Do you snore loudly (louder than talking or can be heard Do you often feel tired/ fatigued/ sleepy during daytime? Has anyone observed you stop breathing during sleep? STOP Results Positive 10/05/24 12:08 QUESTION #5 FULL TEXT : Do you snore loudly (louder than talking or can be heard through closed doors)? 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 Specify any problems Hx of Preganancy in last 3 N/A 10/05/24 12:08 Months Nurse Filling Out Transfusion VCHRISTIN 10/05/24 12:08 & Questions: Date: 10/05/24 10/05/24 12:08 Time: 12:09 10/05/24 12:08 Patient unable to answer at this time (ie. 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: /Reproductive Hx- manufacturing engineering professor Hx Now Gestational Age (in weeks): EDC: Hx Hx Para Hx Section SAB Active Medications Active Medications: Current Medications Generic Name Dose Route Start Last Admin Trade Name Freq PRN Reason Stop Dose Admin Lactated Ringer's 1,000 mls @ 15 mls/hr 10/08/24 06:15 10/08/24 06:33 IV 15 mls/hr .Q48H GAURI Administration PFSH Medical History Wears glasses Anemia Non-smoker CPAP (continuous positive airway pressure) dependence Sleep apnea History of Holter monitoring History of echocardiogram History of stress test Hypertension Cardiology follow-up encounter History of irregular heartbeat Narcolepsy BMI 34.0-34.9,adult Abnormal heart rhythm DENILSON (obstructive sleep apnea) Hyperlipidemia Essential hypertension Home Medications ?Medication ?Instructions ?Recorded ?Last Taken ?Type atorvastatin 40 mg tablet 40 mg PO QHS 12/27/22 10/07/24 History caffeine 200 mg tablet 200 mg PO DAILY 12/27/22 10/07/24 History modafinil 200 mg tablet 200 mg PO DAILY 12/27/22 10/07/24 History potassium chloride 20 mEq 20 meq PO DAILY #90 tabs 12/18/23 10/07/24 Rx tablet,extended release amlodipine 5 mg tablet 5 mg PO DAILY 10/05/24 10/07/24 History losartan 100 1 tab PO DAILY 10/05/24 10/07/24 History mg-hydrochlorothiazide 25 mg tablet Allergy/AdvReac Type Severity Reaction Status Date / Time lisinopril AdvReac Intermediate Angioedema Verified 10/08/24 06:29 Family History Father Atrial fibrillation Sister Atrial fibrillation Surgical History (Updated 10/08/24 @ 06:[address] Mejia Zuluaga MD) Normal colonoscopy Hx of tonsillectomy Social History Smoking Status: Never smoker alcohol intake: never substance use type: does not use caffeine: Yes Review of Systems (Anesthesia) ROS Narrative System reviewed and no additional complaints, except as documented.
--- NOTE | 2024-10-08 07:13 | H&P.OPEN ---
HPI - General HPI Narrative SHERRY BOYD, is a 63 M who presents for screening colonoscopy. I last colonoscopy was 10 years ago and was normal. He denies abdominal pain or blood in the stool. No family history of colon cancer. [facility] Medical History (Updated 10/08/24 @ 07:[address] Kenneth Sorto MD) Wears glasses Anemia Non-smoker CPAP (continuous positive airway pressure) dependence Sleep apnea History of Holter monitoring History of echocardiogram History of stress test Hypertension Cardiology follow-up encounter History of irregular heartbeat Narcolepsy BMI 34.0-34.9,adult Abnormal heart rhythm DENILSON (obstructive sleep apnea) Hyperlipidemia Essential hypertension Home Medications ?Medication ?Instructions ?Recorded ?Last Taken ?Type atorvastatin 40 mg tablet 40 mg PO QHS 12/27/22 10/07/24 History caffeine 200 mg tablet 200 mg PO DAILY 12/27/22 10/07/24 History modafinil 200 mg tablet 200 mg PO DAILY 12/27/22 10/07/24 History potassium chloride 20 mEq 20 meq PO DAILY #90 tabs 12/18/23 10/07/24 Rx tablet,extended release amlodipine 5 mg tablet 5 mg PO DAILY 10/05/24 10/07/24 History losartan 100 1 tab PO DAILY 10/05/24 10/07/24 History mg-hydrochlorothiazide 25 mg tablet Allergy/AdvReac Type Severity Reaction Status Date / Time lisinopril AdvReac Intermediate Angioedema Verified 10/08/24 06:29 Family History Father Atrial fibrillation Sister Atrial fibrillation Surgical History (Updated 10/08/24 @ 06:[address] Mejia Zuluaga MD) Normal colonoscopy Hx of tonsillectomy Social History Smoking Status: Never smoker alcohol intake: never substance use type: does not use caffeine: Yes Past Medical/Surgical History Planned Operation Planned Operative Procedure(s): COLONOSCOPY-OA Previous Hospitalizations/Surgeries HX Hospitalizations: No Any Problems With Anesthesia: No You/Your Family Experience Fever (Hyperthermia) With Anes: No Cholinesterase deficiency: No Cardiovascular Hx Hypertension: Yes (CONTROLLED ON MED) Respiratory Hx Chronic Obstructive Pulmonary Disease (COPD): No Hx Asthma: No Hx Emphysema: No Hx Sleep Apnea: Yes CPAP: Yes BIPAP: No Hx Respiratory Tract Infection/Cold (presently): No Result (for STOP score): Positive Smoking Status: Never smoker Neurological Does patient have nerve stimulator: No Miscellaneous Recent Exposure to Contagious Disease: No Allergies lisinopril Adverse Reaction (Intermediate, Verified 10/08/24 06:29) Angioedema Discharge Is Pt Admitted From a Intermediate, or a Residential: No After D/C, Where Do you Plan to Go: Return Home Vital Signs Vital Signs Vital Signs: 10/08/24 06:30 10/08/24 06:30 10/08/24 06:50 Temperature 98.5 F 98.5 F Temperature Source Temporal Pulse Rate 69 69 Respiratory Rate 16 16 Respiratory Pattern Normal Blood Pressure 135/93 H 135/93 H Blood Pressure Mean 107 Blood Pressure Source Monitor Blood Pressure Position Semi-Fowlers Blood Pressure Location Left Arm Pulse Ox 96 96 Oxygen Delivery Method Room Air Room Air Weight Weight: 209 lb 7.026 oz Body Mass Index (BMI) 30.0 Physical Exam Const alert and oriented x3 HEENT normocephalic Eyes PERRL Resp normal respiratory effort and normal air movement Cardio regular rate and regular rhythm GI soft to palpation, non-tender and non-distended Extremity normal to inspection Assessment & Plan Assessment/Plan (1) Screen for colon cancer: PLAN: I explained endoscopy in detail to the patient. I explained the risks including but not limited to stroke or heart attack with anesthesia, perforation of the GI tract, bleeding, infection. I explained that any of these could necessitate further emergency surgery. The patient understands and all questions were answered sufficiently. The patient wishes to proceed with procedure. Kenneth Sorto MD Pager: [facility] [address] [place] [address], [address] [place] [address] Office: Surgery Risks - Colonoscopy Risks Include but are not Limited To: Risks include but are not limited to: Bleeding, perforation requiring further surgery, inability to complete colonoscopy requiring barium enema.
--- NOTE | 2024-10-08 07:52 | PCM.POST.ANE ---
Anesthesia: Postop Eval I Current Vital Signs Temperature: 98 F Pulse Rate: 62 Blood Pressure: 110/71 Respiratory Rate: 16 Pulse Ox: 100 Oxygen Delivery Method: Room Air Assessment Airway patent: Yes Spontaneous unlabored respirations: Yes Mental status: Awake and Calm nausea: No Vomiting: No Anesthesia Complication: No Fluid Hydration Crystalloid volume administer (ml): 400 Total IV fluid infused: 400 Progress Note Anesthesia document: Postop Eval 1 completed: Yes
--- NOTE | 2024-10-08 07:55 | OP.COLON_ITS ---
Patient Name: Jay Newell Procedure Date: 10/08/2024 7:20 AM Date of : 1960 Age: 63 Procedure: Colonoscopy Indications: Screening for colorectal malignant neoplasm Providers: Kenneth Sorto MD Referring MD: Loretta Camp Md Medicines: Propofol per Anesthesia Patient Profile: This is a 63 year old male. Refer to note in patient chart for documentation of history and physical. Last Colonoscopy: 10 years ago. Complications: No immediate complications. Procedure: Pre-Anesthesia Assessment: - Prior to the procedure, a History and Physical was performed, and patient medications and allergies were reviewed. The patient's tolerance of previous anesthesia was also reviewed. The risks and benefits of the procedure and the sedation options and risks were discussed with the patient. All questions were answered, and informed consent was obtained. Prior Anticoagulants: The patient has taken no anticoagulant or antiplatelet agents. After reviewing the risks and benefits, the patient was deemed in satisfactory condition to undergo the procedure. After I obtained informed consent, the scope was passed under direct vision. Throughout the procedure, the patient's blood pressure, pulse, and oxygen saturations were monitored continuously. The Colonoscope was introduced through the anus and advanced to the cecum, identified by appendiceal orifice and ileocecal valve. The colonoscopy was performed without difficulty. The patient tolerated the procedure well. The quality of the bowel preparation was good. The ileocecal valve, appendiceal orifice, and rectum were photographed. Scope In: 7:40:43 AM Scope Withdrawal Time 0 hours 6 minutes 11 seconds Scope Out: 7:51:41 AM Total Procedure Duration Time 0 hours 10 minutes 58 seconds Findings: The entire examined colon appeared normal on direct and retroflexion views. Impression: - The entire examined colon is normal on direct and retroflexion views. - No specimens collected. Recommendation: - Discharge patient to home. - Resume previous diet. - Continue present medications. - Repeat colonoscopy in 10 years for screening purposes. Procedure Code(s): --- Professional --- 10710, Colonoscopy, flexible; diagnostic, including collection of specimen(s) by brushing or washing, when performed (separate procedure) Diagnosis Code(s): --- Professional --- Z12.11, Encounter for screening for malignant neoplasm of colon CPT copyright 2021 [employer]. All rights reserved. The codes documented in this report are preliminary and upon remote inpatient coder review may be revised to meet current compliance requirements. Kenneth Sorto MD 10/08/2024 7:55:17 AM This report has been signed electronically. Number of Addenda: 0 Note Initiated On: 10/08/2024 7:20 AM
--- NOTE | 2024-10-08 07:56 | OP.PROVAT_ITS ---
10/08/2024 Loretta Camp Md Re : Colonoscopy procedure for Jay Newell Dear Conrado This procedure was performed on Tuesday, October 08, 2024. My impressions and recommendations are as follows: Impressions : - The entire examined colon is normal on direct and retroflexion views. - No specimens collected. Recommendations : - Discharge patient to home. - Resume previous diet. - Continue present medications. - Repeat colonoscopy in 10 years for screening purposes. My findings are described in the full procedure note, which is enclosed. If I can be of further assistance, please feel free to contact me at Doctor phone number(s): , Work: . Sincerely, Kenneth Sorto MD 10/08/2024 7:55:17 AM This report has been signed electronically.
--- NOTE | 2024-10-08 07:59 | POSTOPAN2_ITS ---
Anesthesia Postop Eval I Sum Postop Eval Completion status Anesthesia document: Postop Eval 1 completed: Yes Anesthesia Postop Eval I Summary Anesthesia Postop Eval I Summary: Anesthesia Postop Eval I: Assessment Summary Airway patent Yes 10/08/24 07:53 JV [email or web address] Spontaneous unlabored Yes 10/08/24 07:53 JV [email or web address].[email or web address] respirations Mental status Awake,Calm 10/08/24 07:53 JV [email or web address] nausea No 10/08/24 07:53 JV [employer].MDOT Vomiting No 10/08/24 07:53 JV [email or web address].[email or web address] Anesthesia Postop Eval I: Fluid Summary Crystalloid volume administer 400 10/08/24 07:53 JV [employer]ASEB[employer]ACH.MDOT (ml) Colloids volume administered ( ml) Blood Product volume administered (ml) Total IV fluid infused 400 10/08/24 07:53 JV BASEB[email or web address].MDOT Anesthesia Postop Eval I: Summary Notes Anesthesia Complication No 10/08/24 07:53 JV [email or web address] Anesthesia Complication Comment: Post-operative progress note Anesthesia: Postop Eval II Evaluation Mental status: Awake and Calm Pain Level: 0 nausea: No Vomiting: No Complications Anesthesia Complication: No
--- NOTE | 2024-10-08 07:59 | PCM.POSTANE2 ---
Anesthesia Postop Eval I Sum Postop Eval Completion status Anesthesia document: Postop Eval 1 completed: Yes Anesthesia Postop Eval I Summary Anesthesia Postop Eval I Summary: Anesthesia Postop Eval I: Assessment Summary Airway patent Yes 10/08/24 07:53 HAT BLOCK [email or web address] Spontaneous unlabored Yes 10/08/24 07:53 HAT BLOCK [email or web address].MDOT respirations Mental status Awake,Calm 10/08/24 07:53 HAT BLOCK [email or web address].MDOT nausea No 10/08/24 07:53 HAT BLOCK [email or web address].MDOT Vomiting No 10/08/24 07:53 HAT BLOCK [email or web address] Anesthesia Postop Eval I: Fluid Summary Crystalloid volume administer 400 10/08/24 07:53 HAT BLOCK [email or web address].MDOT (ml) Colloids volume administered ( ml) Blood Product volume administered (ml) Total IV fluid infused 400 10/08/24 07:53 HAT BLOCK [email or web address].MDOT Anesthesia Postop Eval I: Summary Notes Anesthesia Complication No 10/08/24 07:53 HAT BLOCK [email or web address].[email or web address] Anesthesia Complication Comment: Post-operative progress note Anesthesia: Postop Eval II Evaluation Mental status: Awake and Calm Pain Level: 0 nausea: No Vomiting: No Complications Anesthesia Complication: No
== END 2024-10-08 08:40 | disposition home or self-care (01) ==
LOC: EN 06:00 → AC 06:01
PROVIDERS: PCP Family Medicine; Referring Provider Family Medicine; Visit Provider Surgery
PROC: 0DJD8ZZ Inspection of Lower Intestinal Tract, Via Natural or Artificial Opening Endoscopic (ICD-10-PCS; CPT 45378; principal; 2024-10-08 07:25)
DX: Z12.11 Encounter for screening for malignant neoplasm of colon (principal); G47.33 Obstructive sleep apnea (adult) (pediatric); Z82.49 Family history of ischemic heart disease and other diseases of the circulatory system; I10 Essential (primary) hypertension; E78.5 Hyperlipidemia, unspecified; Z99.89 Dependence on other enabling machines and devices
CPT/HCPCS: 45378